=== PATIENT | female | born 1945 | race Caucasian/White ===

== ENCOUNTER → 2018-04-13 | Outpatient (CLI) | payer MEDICARE, MEDICAID ==
[2018-04-13 10:38] LABS: ABSOLUTE BASOPHILS # (AUTO) 0.1 10^3/uL (0.0-0.2); ABSOLUTE EOSINOPHILS # (AUTO) 0.2 10^3/uL (0.0-0.6); ABSOLUTE LYMPHOCYTES (AUTO) 1.9 10^3/uL (0.5-4.7); ABSOLUTE MONOCYTES (AUTO) 0.6 10^3/uL (0.1-1.4); ABSOLUTE NEUT (AUTO) 3.4 10^3/uL (1.7-8.2); BASOPHILS % (AUTO) 1.2 % (0-2); EOSINOPHILS % (AUTO) 3.1 % (0-6); HEMATOCRIT 36.3 % (36.0-47.0); HEMOGLOBIN 12.4 g/dL (12.0-15.5); LYMPHOCYTES % (AUTO) 30.4 % (13-45); MEAN CORPUSCULAR HEMOGLOBIN 29.8 pg (27.0-33.4); MEAN CORPUSCULAR HGB CONC 34.2 g/dL (32.0-36.0); MEAN CORPUSCULAR VOLUME 87 fl (80-97); MONOCYTES % (AUTO) 10.2 % (3-13); PLATELET COUNT 317 10^3/uL (150-450); RED BLOOD COUNT 4.17 10^6/uL (3.72-5.28); RED CELL DISTRIBUTION WIDTH 13.7 % (11.5-14.0); SEGMENTED NEUTROPHILS % (AUTO) 55.1 % (42-78); TOTAL CELLS COUNTED % (AUTO) 100 %; WHITE BLOOD COUNT 6.2 10^3/uL (4.0-10.5)
--- NOTE | 2018-04-13 10:40 | RADIOLOGY REPORT (SQ) ---
EXAM DESCRIPTION: ACUTE ABDOMEN SERIES COMPLETED DATE/TIME: 04/13/2018 9:52 am REASON FOR STUDY: ABD PAIN K21.0 GASTRO-ESOPHAGEAL REFLUX DISEASE WITH ESOPHAGITIS R10.84 GENERALI ZED ABDOMINAL PAIN E78.5 HYPERLIPIDEMIA, UNSPECIFIED COMPARISON: None. NUMBER OF VIEWS: Three views. TECHNIQUE: Frontal chest, supine abdomen and upright/decubitus abdomen radiographic images acquired. LIMITATIONS: None. FINDINGS: CHEST: Lungs clear of infiltrates. Chronic appearing changes are identified. FREE AIR: None. No abnormal gas collections. BOWEL GAS PATTERN: There are some prominent air filled small bowel loops with multiple air-fluid leve ls being identified on the erect film. This presumably is related to an ileus pattern although the p ossibility of a developing obstruction cannot be excluded CALCIFICATIONS: No suspicious calcifications. HARDWARE: Surgical clips are identified in the right upper quadrant SOFT TISSUES: No gross mass or suggestion of organomegaly. BONES: Degenerative changes are identified in the lumbar spine P OTHER: No other significant finding. IMPRESSION: Prominent air filled small bowel loops with multiple air-fluid levels being identified o n the erect film. This presumably is related to an ileus pattern although the possibility of a devel oping obstruction cannot be excluded. Clinical correlation is recommended. Other findings as noted above TECHNICAL DOCUMENTATION: JOB ID: [id number] [employer]- All Rights Reserved Reading location - IP/workstation name: [email or web address]
[2018-04-13 10:54] LABS: ALANINE AMINOTRANSFERASE 24 U/L (9-52); ALBUMIN 3.9 g/dL (3.5-5.0); ALKALINE PHOSPHATASE 81 U/L (38-126); AMYLASE 42 U/L (30-110); ANION GAP 9 (5-19); ASPARTATE AMINO TRANSFERASE 31 U/L (14-36); BILIRUBIN,DIRECT 0.3 mg/dL (0.0-0.4); BILIRUBIN,TOTAL 0.5 mg/dL (0.2-1.3); BLOOD UREA NITROGEN 17 mg/dL (7-20); CALCIUM 9.2 mg/dL (8.4-10.2); CARBON DIOXIDE 28 mmol/L (22-30); CHLORIDE 107 mmol/L (98-107); CHOLESTEROL 143.31 mg/dL (0-200); GLUCOSE 96 mg/dL (75-110); LIPASE 38.8 U/L (23-300); POTASSIUM 4.3 mmol/L (3.6-5.0); SODIUM 144.2 mmol/L (137-145); TOTAL PROTEIN 6.8 g/dL (6.3-8.2); TRIGLYCERIDES 107 mg/dL (<150)
[2018-04-13 11:05] LABS: DIRECT LDL 72 mg/dL (<100)
== END ==
LOC: OD 09:29
PROVIDERS: ATTEND Family Medicine Geriatric Medicine
DX: K21.0 Gastro-esophageal reflux disease with esophagitis (principal); R10.84 Generalized abdominal pain; E78.5 Hyperlipidemia, unspecified; Z79.899 Other long term (current) drug therapy
CPT/HCPCS: 36415; 74022; 80053; 80061; 82150; 83690; 83735; 84443; 85025

== ENCOUNTER 2018-04-14 00:46 | Emergency (ER) | payer MEDICARE, MEDICAID ==
[2018-04-14] MEDS ORDERED: ONDANSETRON HCL INJ/PF 4 MG/2 ML SDV IV ONE (02:34)
[2018-04-14] MEDS ORDERED: DIPHENHYDRAMINE HCL 25 MG CAPSULE PO ONE (02:42)
[2018-04-14] MEDS ORDERED: FAMOTIDINE 20 MG TABLET PO ONE (02:44)
--- NOTE | 2018-04-14 02:46 | ER Document Report ---
ED General - General Chief Complaint: Abdominal Pain Stated Complaint: VOMITING, STOMACH PAIN Time Seen by Provider: 04/14/18 02:09 Mode of Arrival: Ambulatory Information source: Patient, Relative Notes: 72-year-old female with past medical history of C. difficile approximately 5 years ago and chronic pain seen by pain management presents to the emergency department for feeling "sick". She says she became very ill last and she went to see her doctor who said she was "dry". She went and saw her doctor today, labs were drawn, and a KUB was performed which showed multiple air-fluid levels concerning for ileus versus small bowel obstruction. Patient went home today and said she became more ill and came to the emergency department. She endorses chills, headache in the frontal area, diarrhea, vomiting on Tuesday and Tuesday, persistent nausea She denies fevers, dyspnea, chest pain, constipation, bloating. She says she has been on Percocet for years and her baseline is having loose stools. TRAVEL OUTSIDE OF THE [place] IN LAST 30 DAYS: No - HPI Patient complains to provider of: abdominal pain, sick Onset: Last week - Last Severity: Moderate - Related Data Allergies/Adverse Reactions: promethazine HCl [From Phenergan] Allergy (Severe, Verified 11/06/12 12:32) Psychosis nitrofurantoin macrocrystalline [From Macrodantin] Allergy (Mild, Verified 11/06 12:32) Hives Sulfa (Sulfonamide Antibiotics) Allergy (Mild, Verified 11/06/12 12:32) itching ciprofloxacin [From Cipro] Allergy (Unknown, Verified 11/06/12 12:32) ciprofloxacin HCl [From Cipro] Allergy (Unknown, Verified 11/06/12 12:32) hydromorphone HCl [From Dilaudid] Adverse Reaction (Mild, Verified 11/06/12 12: 32) Nausea Past Medical History - General Information source: Patient, Relative - Social History Smoking Status: Former Smoker Family History: Reviewed & Not Pertinent GI Medical History: Reports: Hx Gastroesophageal Reflux Disease Musculoskeletal Medical History: Reports Hx Arthritis Skin Medical History: Denies Hx MRSA Psychiatric Medical History: Reports: Hx Anxiety - severe Past Surgical History: Reports: Hx Cholecystectomy, Hx Hysterectomy, Hx Orthopedic Surgery - old back injury - Immunizations Hx Diphtheria, Pertussis, Tetanus Vaccination: Yes Review of Systems - Review of Systems Constitutional: See HPI EENT: See HPI Cardiovascular: See HPI Respiratory: See HPI Gastrointestinal: See HPI Genitourinary: See HPI Female Genitourinary: No symptoms reported Musculoskeletal: No symptoms reported Skin: No symptoms reported Hematologic/Lymphatic: No symptoms reported Neurological/Psychological: No symptoms reported Physical Exam - Vital signs Vitals: Temp Pulse Resp BP Pulse Ox 97.9 F 66 18 152/66 H 97 04/14/18 00:54 04/14/18 00:54 04/14/18 00:54 04/14/18 00:54 04/14/18 00:54 - Notes Notes: Reviewed vital signs and nursing note as charted by RN. CONSTITUTIONAL: ill-appearing, well-nourished, acting appropriately for age HEAD: Normocephalic, atraumatic, no swelling EYES: PERRL, Conjunctivae clear, no drainage, EOMI, no scleral icterus ENT: External ears without lesions, External auditory canal is patent, no rhinorrhea, Pharynx without erythema or lesions, airway patent, mucous membranes pink and moist NECK: Supple, no cervical lymphadenopathy CARD: Regular rate and rhythm, no murmurs, no rubs, no gallops, capillary refill < 2 seconds, symmetric pulses RESP: The lungs are clear to auscultation bilaterally, no wheezing, no rales, no rhonchi. Respiratory rate and effort are normal, normal chest excursion. No respiratory distress, no retractions, no stridor, no nasal flaring, no accessory muscle use. ABD/GI: Hyperactive bowel sounds, non-distended, soft, non-tender, no rebound, no guarding, no palpable organomegaly EXT: Normal ROM in all joints, non-tender to palpation, no effusions, no edema SKIN: Normal color for age and race, warm, dry, good turgor, no acute lesions noted Course - Re-evaluation Re-evalutation: 04/14/18 02:54 Is a 72-year-old female in mild distress who presents to the emergency department after being seen in primary care office this morning and after getting a KUB which showed concern for an ileus versus SBO. Patient's physical exam is unremarkable. She is afebrile, upper active bowel sounds, abdomen is soft no signs of peritonitis, mild tenderness to palpation right lower quadrant and left lower quadrant. KUB was concerning for air-fluid levels in the small intestine. All lab work was unremarkable, no leukocytosis, no electrolyte derangements. Plan is to get a CT abdomen with IV and oral contrast to rule out an SBO. Patient dates she gets hives when receiving contrast in the past so plan is to give Benadryl 50 mg IV, solumedrol 125 mg IV, and Pepcid 20 mg IV prior to consuming contrast 04/14/18 03:23 04/14/18 06:10 CT abdomen and pelvis negative for small bowel obstruction. No evidence of a surgical pathology patient is safe to discharge home. 04/14/18 06:17 04/14/18 06:17 - Vital Signs Vital signs: Temp Pulse Resp BP Pulse Ox 97.9 F 66 18 152/66 H 97 04/14/18 00:54 04/14/18 00:54 04/14/18 00:54 04/14/18 00:54 04/14/18 00:54 Discharge - Discharge Clinical Impression: Nausea Abdominal pain Qualifiers: Abdominal location: unspecified location Qualified Code(s): R10.9 - Unspecified abdominal pain Condition: Stable Disposition: HOME, SELF-CARE Instructions: Abdominal Pain ([facility]), Antinausea Medication ([facility]) Additional Instructions: You have been seen in the Emergency Department (ED) for abdominal pain. Your evaluation did not identify a clear cause of your symptoms but was generally reassuring. Please follow up with your doctor as soon as possible regarding today's emergent visit and the symptoms that are bothering you. Return to the ED if your abdominal pain worsens or fails to improve, you develop bloody vomiting, bloody diarrhea, you are unable to tolerate fluids due to vomiting, fever greater than 101, or other symptoms that concern you. You have also been seen in the Emergency Department (ED) today for nausea and vomiting. Your work up today has not shown a clear cause for your symptoms. You have been prescribed Zofran; please use as prescribed as needed for your nausea. Follow up with your doctor as soon as possible regarding today's emergent visit and your symptoms of nausea. Return to the Emergency Department (ED) if you develop abdominal pain, bloody vomiting, bloody diarrhea, if you are unable to tolerate fluids due to vomiting , or if you develop other symptoms that concern you. Referrals: FRED MANUEL MD [Primary Care Provider] - Follow up as needed
[2018-04-14] MEDS ORDERED: METHYLPREDNISOLONE INJ 125 MG/2 ML SDV IV ONE (03:03)
[2018-04-14] MEDS ORDERED: DIPHENHYDRAMINE HCL 50 MG/ML VIAL IV ONE (03:03)
[2018-04-14] MEDS ORDERED: FAMOTIDINE INJ/PF 20 MG/2 ML SDV IV ONE (03:03)
[2018-04-14] MEDS ORDERED: NORMAL SALINE 1000 ML 1,000 ML IV ONE (03:04)
[2018-04-14] MEDS ORDERED: FENTANYL CITRATE INJ/PF 100 MCG/2 ML AMPUL IV ONE (04:31)
--- NOTE | 2018-04-14 05:22 | RADIOLOGY REPORT (SQ) ---
CLINICAL HISTORY: concern for SBO, nausea/vomiting/loose stool COMPARISON: None. 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 FINDINGS: Lower lungs are clear. Abdomen: There is a small probable cyst in the anterior liver. There is no biliary dilatation. Gallbladder contains several calcified gallstones. The pancreas and spleen are normal in appearance. There is an indeterminate 1.9 cm lesion within the right kidney anteriorly with a mural calcification. Left kidney is unremarkable. Adrenal glands are normal. Abdominal aorta is normal in course and caliber without aneurysm. There is no free air. There is no retroperitoneal adenopathy. Pelvis: There is moderate to severe distal colonic diverticulosis. Urinary bladder is unremarkable. There is no free fluid. Appendix is not clearly seen. Skeleton: There are no acute osseous findings. No suspicious bony lesions. IMPRESSION: No acute inflammatory process. No definite renal or ureteral calculi. Almost 2 cm indeterminate right renal lesion. Consider contrast study or ultrasound and nonemergent setting.
--- NOTE | 2018-04-14 06:09 | RADIOLOGY REPORT (SQ) ---
CLINICAL HISTORY: SBO? N/V LOOSE STOOL COMPARISON: None. 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 FINDINGS: Lower lungs are clear. Abdomen: There are several tiny cysts in the liver. There is no biliary dilatation. Cholecystectomy was performed. The pancreas and spleen are normal in appearance. The adrenal glands and kidneys are unremarkable. Abdominal aorta is densely calcified without aneurysm. There is no free air. There is no retroperitoneal adenopathy. Pelvis: There is fluid throughout the colon. Urinary bladder is unremarkable. There is trace free pelvic fluid. Appendix is normal. Skeleton: There are no acute osseous findings. No suspicious bony lesions. IMPRESSION: No convincing bowel obstruction. Fluid throughout the colon may be secondary to an underlying diarrheal process.
[2018-04-14] MEDS ORDERED: ONDANSETRON 4 MG TAB.RAPDIS PO ONE (06:12)
[2018-04-14 06:40] VITALS: BP 142/57
== END 2018-04-14 06:40 | disposition home or self-care (01) ==
LOC: ER 00:46
DX: R10.9 Unspecified abdominal pain (principal); R11.0 Nausea; R19.7 Diarrhea, unspecified; Z87.891 Personal history of nicotine dependence
CPT/HCPCS: 99284; 96361; 96374; 96375; 74177; 74160; J1200; J3010; J2930; J2405; J7030; S0028

== ENCOUNTER 2018-05-18 07:14 | Inpatient (IN) | payer MEDICARE, MEDICAID ==
[2018-05-18] MEDS ORDERED: NORMAL SALINE 1000 ML 1,000 ML IV ONE (08:08)
[2018-05-18 08:39] LABS: ABSOLUTE BASOPHILS # (AUTO) 0.1 10^3/uL (0.0-0.2); ABSOLUTE LYMPHOCYTES (AUTO) 0.8 10^3/uL (0.5-4.7); ABSOLUTE MONOCYTES (AUTO) 0.9 10^3/uL (0.1-1.4); ABSOLUTE NEUT (AUTO) 12.7 10^3/uL (1.7-8.2); BASOPHILS % (AUTO) 0.6 % (0-2); HEMATOCRIT 36.7 % (36.0-47.0); HEMOGLOBIN 12.1 g/dL (12.0-15.5); LYMPHOCYTES % (AUTO) 5.4 % (13-45); MEAN CORPUSCULAR HEMOGLOBIN 29.2 pg (27.0-33.4); MEAN CORPUSCULAR HGB CONC 33.1 g/dL (32.0-36.0); MEAN CORPUSCULAR VOLUME 88 fl (80-97); MONOCYTES % (AUTO) 6.4 % (3-13); PLATELET COUNT 295 10^3/uL (150-450); RED BLOOD COUNT 4.16 10^6/uL (3.72-5.28); RED CELL DISTRIBUTION WIDTH 13.6 % (11.5-14.0); SEGMENTED NEUTROPHILS % (AUTO) 87.6 % (42-78); TOTAL CELLS COUNTED % (AUTO) 100 %; WHITE BLOOD COUNT 14.5 10^3/uL (4.0-10.5)
[2018-05-18 08:54] LABS: A TYPE INFLUENZA AG NEGATIVE (NEGATIVE); B INFLUENZA AG NEGATIVE (NEGATIVE)
[2018-05-18 08:56] LABS: ALANINE AMINOTRANSFERASE 15 U/L (9-52); ALBUMIN 4.1 g/dL (3.5-5.0); ALKALINE PHOSPHATASE 72 U/L (38-126); ANION GAP 10 (5-19); ASPARTATE AMINO TRANSFERASE 21 U/L (14-36); BILIRUBIN,DIRECT 0.1 mg/dL (0.0-0.4); BILIRUBIN,TOTAL 0.5 mg/dL (0.2-1.3); BLOOD UREA NITROGEN 17 mg/dL (7-20); CALCIUM 9.3 mg/dL (8.4-10.2); CARBON DIOXIDE 24 mmol/L (22-30); CHLORIDE 105 mmol/L (98-107); GLUCOSE 180 mg/dL (75-110); POTASSIUM 4.3 mmol/L (3.6-5.0); SODIUM 138.7 mmol/L (137-145); TOTAL PROTEIN 6.6 g/dL (6.3-8.2)
--- NOTE | 2018-05-18 09:04 | RADIOLOGY REPORT (SQ) ---
EXAM DESCRIPTION: CHEST 2 VIEWS COMPLETED DATE/TIME: 05/18/2018 8:24 am REASON FOR STUDY: fever, cough COMPARISON: None. EXAM PARAMETERS: NUMBER OF VIEWS: two views TECHNIQUE: Digital Frontal and Lateral radiographic views of the chest acquired. RADIATION DOSE: NA LIMITATIONS: none FINDINGS: LUNGS AND PLEURA: Subsegmental airspace disease in the middle lobe and right lower lobe malcolm perior segment. No effusions. Left lung is clear. MEDIASTINUM AND HILAR STRUCTURES: No masses or contour abnormalities. HEART AND VASCULAR STRUCTURES: Heart normal size. No evidence for failure. BONES: No acute findings. HARDWARE: None in the chest. OTHER: No other significant finding. IMPRESSION: Right middle and lower lobe pneumonia. TECHNICAL DOCUMENTATION: JOB ID: [id number] [employer]- All Rights Reserved Reading location - IP/workstation name: [email or web address]
[2018-05-18 09:12] LABS: APPEARANCE,URINE CLEAR; BILIRUBIN,URINE NEGATIVE (NEGATIVE); COLOR,URINE YELLOW; GLUCOSE, URINE NEGATIVE (NEGATIVE); KETONES,URINE NEGATIVE (NEGATIVE); LEUKOCYTE ESTERASE,URINE NEGATIVE (NEGATIVE); NITRITE,URINE NEGATIVE (NEGATIVE); PROTEIN,URINE NEGATIVE (NEGATIVE); URINE SPECIFIC GRAVITY 1.015; UROBILINOGEN,URINE NEGATIVE mg/dL (<2.0)
--- NOTE | 2018-05-18 09:25 | ER Document Report ---
ED General - General Chief Complaint: Fever Stated Complaint: FEVER Time Seen by Provider: 05/18/18 07:43 Mode of Arrival: Medic Information source: Patient Notes: Patient presents emergency department with complaints of fever body aches and not feeling good. Patient reports she really has not felt good since . She reports last night her body started hurting her granddaughter took her temperature and it was 103. She denies vomiting reports some nausea. She also reports that she has a history of constipation so she took a stool softener and has had diarrhea. She reports positive cough no product and throat hurting. She did receive the flu vaccine. TRAVEL OUTSIDE OF THE [place] IN LAST 30 DAYS: No - HPI Onset: Other - Reports really not feeling good since . Body aches started yesterday Onset/Duration: Persistent Quality of pain: Achy Pain Level: 2 Associated symptoms: Body/muscle aches, Nonproductive cough, Fever, Nausea Exacerbated by: Denies Relieved by: Denies Similar symptoms previously: Yes Recently seen / treated by doctor: No - Related Data Allergies/Adverse Reactions: promethazine HCl [From Phenergan] Allergy (Severe, Verified 11/06/12 12:32) Psychosis nitrofurantoin macrocrystalline [From Macrodantin] Allergy (Mild, Verified 11/06/12 12:32) Hives Sulfa (Sulfonamide Antibiotics) Allergy (Mild, Verified 11/06/12 12:32) itching ciprofloxacin [From Cipro] Allergy (Unknown, Verified 11/06/12 12:32) hydromorphone HCl [From Dilaudid] Adverse Reaction (Mild, Verified 11/06/12 12:32) Nausea Past Medical History - General Information source: Patient - Social History Smoking Status: Former Smoker Chew tobacco use (# tins/day): No Frequency of alcohol use: None Drug Abuse: None Lives with: Alone Family History: Reviewed & Not Pertinent Patient has suicidal ideation: No Patient has homicidal ideation: No Renal/ Medical History: Denies: Hx Peritoneal Dialysis GI Medical History: Reports: Hx Gastroesophageal Reflux Disease Musculoskeletal Medical History: Reports Hx Arthritis Skin Medical History: Denies Hx MRSA Psychiatric Medical History: Reports: Hx Anxiety - severe Past Surgical History: Reports: Hx Cholecystectomy, Hx Hysterectomy, Hx Orthopedic Surgery - old back injury - Immunizations Hx Diphtheria, Pertussis, Tetanus Vaccination: Yes Review of Systems - Review of Systems Notes: Review HPI for review of systems., All other systems negative Physical Exam - Vital signs Vitals: Temp Pulse Resp BP Pulse Ox 100.4 F 82 15 107/55 L 93 05/18/18 07:59 05/18/18 07:59 05/18/18 07:59 05/18/18 07:59 05/18/18 07:59 - Notes Notes: PHYSICAL EXAMINATION: GENERAL: nontoxic looking, no acute distress HEAD: Atraumatic, normocephalic. EYES: Pupils equal round, extraocular movements intact, sclera anicteric, conjunctiva are normal. ENT: nares patent, oropharynx clear without exudates. Moist mucous membranes. NECK: Normal range of motion, supple without lymphadenopathy LUNGS: even unlabored. No wheezes +rhochi. HEART: Regular rate and rhythm ABDOMEN: Soft, no tenderness. No guarding, no rebound EXTREMITIES: Normal range of motion, no pitting edema. No cyanosis. NEUROLOGICAL: Cranial nerves grossly intact. Normal sensory/motor exams. PSYCH: Normal mood, normal affect. SKIN: Warm, Dry, normal turgor, no rashes or lesions noted Course - Re-evaluation Re-evalutation: 05/18/18 09:22 Dictation of this chart was performed using voice recognition software; therefore, there may be some unintended grammatical errors. 05/18/18 10:46 Patient ambulated around the emergency department without oxygen her O2 sats dropped down to the 80s. Return to bed oxygen replaced. Contacted Dr. Townsend because family reported that was her physician. After talking to Dr. Townsend he said she is a patient of Dr. Del Cid who does not admit to the hospital. I contacted and gave report to Dr. Bustamante who accepts the patient. 02sat 93-95% interpreted by me pt with O2 2 L nasal cannula , good waveform - Vital Signs Vital signs: Temp Pulse Resp BP Pulse Ox 98.9 F 57 L 12 100/60 99 05/18/18 14:06 05/18/18 14:06 05/18/18 14:06 05/18/18 14:06 05/18/18 14:06 - Laboratory Result Diagrams: 05/18/18 08:24 05/18/18 08:24 Laboratory results interpreted by me: 05/18/18 05/18/18 08:24 08:24 WBC 14.5 H Seg Neutrophils % 87.6 H Lymphocytes % 5.4 L Absolute Neutrophils 12.7 H Est GFR (Non-Af Amer) 53 L Glucose 180 H - Diagnostic Test Radiology reviewed: Image reviewed, Reports reviewed - EXAM DESCRIPTION: CHEST 2 VIEWS COMPLETED DATE/TIME: 05/18/2018 8:24 am REASON FOR STUDY: fever, cough COMPARISON: None. EXAM PARAMETERS: NUMBER OF VIEWS: two views TECHNIQUE: Di gital Frontal and Lateral radiographic views of the chest acquired. RADIATION DOSE: NA LIMITATIONS: none FINDINGS: LUNGS AND PLEURA: Subsegmental airspace disease in the middle lobe and right lower lobe superior segment. No effusions. Left lung is clear. MEDIASTINUM AND HILAR STRUCTURES: No masses or contour abnormalities. HEART AND VASCULAR STRUCTURES: Heart normal size. No evidence for failure. BONES: No acute findings. HARDWARE: None in the chest. OTHER: No other significant finding. IMPRESSION: Right middle and lower lobe pneumonia. - EKG Interpretation by Or EKG shows normal: Sinus rhythm Rate: Normal Rhythm: NSR - Consults vesna Time consulted: 10:48 Consulted provider: will see as inpatient Discharge - Discharge Clinical Impression: Fever Pneumonia Qualifiers: Pneumonia type: due to unspecified organism Laterality: right Lung location: lower lobe of lung Qualified Code(s): J18.1 - Lobar pneumonia, unspecified organism Condition: Stable Disposition: ADMITTED INPATIENT Admitting Provider: Narcisa bustamante Unit Admitted: Medical Floor
[2018-05-18] MEDS ORDERED: CEFTRIAXONE 1 GM/D5W RTU 1 GM/50 ML RTUPB IV ONE (10:34)
[2018-05-18] MEDS ORDERED: NORMAL SALINE 1000 ML 1,000 ML IV PRN (11:54)
[2018-05-18] MEDS ORDERED: ALBUTEROL SULFATE 0.083% NEB 2.5 MG/3 ML AMPUL NEB PRN (11:54)
[2018-05-18] MEDS ORDERED: GUAIFENESIN/D-METHORPHAN (200-20 MG) SYRUP 10 ML PO PRN (12:04)
--- NOTE | 2018-05-18 12:20 | PDOC H&P ---
History of Present Illness Admission Date/PCP: 05/18/18 11:25 FRED MANUEL MD Patient complains of: Fever, chills and shortness of breath History of Present Illness: JOSEPH KIDD is a 72 year old female who was feeling reasonably well at her baseline until yesterday. Last evening she began to get a sense of being cold with shaking. She had not been coughing but did feel short of breath. Her daughter reports that she believes that her mother was slowly getting more short of breath over the last week or so. At one point they helped mom go to the bathroom because she was so weak. Temperature at home was 103 degrees and a pulse oximetry on room air was 89 degrees. The family was quite concerned and brought the patient to the emergency department. After evaluation the patient was found to have a right lower and middle lobe pneumonia. There was no history of recurrent emesis although the patient did say she was nauseated and had emesis but this was a week or 2 ago. There was a small elevation in white blood cell count at 14,000. Oxygen was required for hypoxemia. The patient is not on oxygen at home. The patient will be admitted by the hospitalist for treatment of her right-sided pneumonia. Past Medical History Cardiac Medical History: Denies: Atrial Fibrillation, Congestive Heart Failure, Myocardial Infarction Pulmonary Medical History: Denies: Asthma, Respiratory Failure, Sleep Apnea EENT Medical History: Reports: None Neurological Medical History: Denies: Hemorrhagic CVA, Ischemic CVA, Migraine, Multiple Sclerosis Endocrine Medical History: Denies: Diabetes Mellitus Type 1, Diabetes Mellitus Type 2 Renal/ Medical History: Reports: Other - Mild chronic kidney disease suspected by primary care physician. Workup in Malignancy Medical History: Reports: None GI Medical History: Reports: Gastroesophageal Reflux Disease Musculoskeltal Medical History: Reports: Arthritis Psychiatric Medical History: Denies: Alcohol Dependency, Bipolar Disorder, Dementia, Depression Traumatic Medical History: Reports: None Hematology: Denies: Anemia, Hemophilia, Bleeding Tendencies Infectious Medical History: Reports: Clostridium Difficile Past Surgical History Past Surgical History: Reports: Cholecystectomy, Hysterectomy, Orthopedic Surger y - old back injury Social History Information Source: Patient, Relative, [facility] Records Lives with: Alone Smoking Status: Former Smoker Frequency of Alcohol Use: None Hx Recreational Drug Use: No Drugs: None Hx Prescription Drug Abuse: No - Patient on chronic opiate therapy for back pain treated at pain management - Advance Directive Resuscitation Status: Full Code Surrogate healthcare decision maker:: Unknown at this time Family History Family History: Arthritis, COPD, Malignancy - Lung cancer Parental Family History Reviewed: Yes Children Family History Reviewed: Yes Sibling(s) Family History Reviewed.: Yes Medication/Allergy Home Medications: Dicyclomine HCl [Bentyl 10 mg Capsule] 10 mg PO QID 05/18/18 Fluticasone Propionate [Flonase Nasal Egnar 50 Mcg/Egnar 16 gm] 1 spray NASL DAILY 05/18/18 Gabapentin [Neurontin] 600 mg PO Q8 05/18/18 Hydroxyzine HCl [Atarax 25 mg Tablet] 25 mg PO Q12 05/18/18 Omeprazole 20 mg PO BID 05/18/18 Oxycodone HCl 15 mg PO Q6HP PRN 05/18/18 Allergies/Adverse Reactions: promethazine HCl [From Phenergan] Allergy (Severe, Verified 11/06/12 12:32) Psychosis nitrofurantoin macrocrystalline [From Macrodantin] Allergy (Mild, Verified 11/06/12 12:32) Hives Sulfa (Sulfonamide Antibiotics) Allergy (Mild, Verified 11/06/12 12:32) itching ciprofloxacin [From Cipro] Allergy (Unknown, Verified 11/06/12 12:32) ciprofloxacin HCl [From Cipro] Allergy (Unknown, Verified 11/06/12 12:32) hydromorphone HCl [From Dilaudid] Adverse Reaction (Mild, Verified 11/06/12 12:32) Nausea Review of Systems Constitutional: PRESENT: as per HPI, chills, fatigue Eyes: PRESENT: other - She does wear glasses. ABSENT: visual disturbances Ears: ABSENT: hearing changes Nose, Mouth, and Throat: PRESENT: other - Chronic dry mouth Cardiovascular: ABSENT: chest pain, edema, palpitations Respiratory: PRESENT: cough, dyspnea. ABSENT: hemoptysis, sputum Gastrointestinal: PRESENT: constipation - Occasional from pain medication, heart burn. ABSENT: abdominal pain, diarrhea Genitourinary: ABSENT: dysuria, hematuria Musculoskeletal: PRESENT: back pain Integumentary: ABSENT: lesions, rash Neurological: ABSENT: abnormal speech, convulsions, dizziness, syncope, tremor(s) Psychiatric: ABSENT: anxiety, depression Endocrine: ABSENT: cold intolerance, heat intolerance, polydipsia, polyuria Hematologic/Lymphatic: ABSENT: easy bleeding, easy bruising Allergic/Immunologic: ABSENT: seasonal rhinorrhea Physical Exam Vital Signs: Temp Pulse Resp BP Pulse Ox 100.4 F 82 15 107/55 L 95 05/18/18 07:59 05/18/18 07:59 05/18/18 07:59 05/18/18 07:59 05/18/18 08:26 Intake & Output 05/17/18 05/18/18 05/19/18 06:59 06:59 06:59 Weight 79.4 kg General appearance: PRESENT: cooperative, mild distress Head exam: PRESENT: normocephalic Eye exam: PRESENT: conjunctiva pale, EOMI, nystagmus. ABSENT: scleral icterus Ear exam: PRESENT: normal external ear exam Mouth exam: PRESENT: dry mucosa, tongue midline Neck exam: ABSENT: lymphadenopathy Respiratory exam: PRESENT: rhonchi - On the right, symmetrical. ABSENT: accessory muscle use, stridor, tachypnea, wheezes Cardiovascular exam: PRESENT: RRR, +S1, +S2 Vascular exam: PRESENT: pallor GI/Abdominal exam: PRESENT: normal bowel sounds, soft. ABSENT: distended, tenderness Rectal exam: PRESENT: deferred Neurological exam: PRESENT: awake - But somnolent., oriented to person, oriented to place, oriented to situation Psychiatric exam: PRESENT: flat affect. ABSENT: agitated, anxious Focused psych exam: ABSENT: restlessness Results Laboratory Results: 05/18/18 08:24 05/18/18 08:24 05/18/18 05/18/18 05/18/18 08:00 08:24 08:24 WBC 14.5 H RBC 4.16 Hgb 12.1 Hct 36.7 MCV 88 MCH 29.2 MCHC 33.1 RDW 13.6 Plt Count 295 Seg Neutrophils % 87.6 H Lymphocytes % 5.4 L Monocytes % 6.4 Eosinophils % 0.0 Basophils % 0.6 Absolute Neutrophils 12.7 H Absolute Lymphocytes 0.8 Absolute Monocytes 0.9 Absolute Eosinophils 0.0 Absolute Basophils 0.1 Sodium 138.7 Potassium 4.3 Chloride 105 Carbon Dioxide 24 Anion Gap 10 BUN 17 Creatinine 1.03 Est GFR ( Amer) > 60 Est GFR (Non-Af Amer) 53 L Glucose 180 H Calcium 9.3 Total Bilirubin 0.5 AST 21 ALT 15 Alkaline Phosphatase 72 Total Protein 6.6 Albumin 4.1 Urine Color YELLOW Urine Appearance CLEAR Urine pH 5.0 Ur Specific [place] 1.015 Urine Protein NEGATIVE Urine Glucose (UA) NEGATIVE Urine Ketones NEGATIVE Urine Blood NEGATIVE Urine Nitrite NEGATIVE Ur Leukocyte Esterase NEGATIVE Urine WBC (Auto) 1 Urine RBC (Auto) 2 Impressions: Chest X-Ray 05/18/18 07:53 IMPRESSION: Right middle and lower lobe pneumonia. Assessment & Plan - Diagnosis (1) Pneumonia Qualifiers: Pneumonia type: due to unspecified organism Laterality: right Lung location: lower lobe of lung Qualified Code(s): J18.1 - Lobar pneumonia, unspecified organism Is this a current diagnosis for this admission?: Yes Plan: The patient presents with a fairly acute onset right lower and middle lobe pneumonia. There is no obvious recent emesis to suggest aspiration but this still is a consideration. With her multiple allergies she will be placed on ceftriaxone and azithromycin for the time being. Have ordered a sputum culture. Hopefully with guaifenesin she may be able to cough up a specimen sent to the lab. Scheduled DuoNeb and as needed nebulizer treatments available. Oxygen supplementation to keep her saturation 90% or better. Mucolytic's ordered as well as cough suppressant. (2) Back pain Qualifiers: Back pain location: low back pain Chronicity: chronic Back pain laterality: midline Sciatica presence: unspecified whether sciatica present Qualified Code(s): M54.5 - Low back pain; G89.29 - Other chronic pain Is this a current diagnosis for this admission?: Yes Plan: The patient is registered at the chronic pain management clinic. I will defer any changes in her pain management to the clinic. She will be on stool softeners to prevent constipation. (3) Gastroesophageal reflux Qualifiers: Esophagitis presence: esophagitis presence not specified Qualified Code(s): K21.9 - Gastro-esophageal reflux disease without esophagitis Is this a current diagnosis for this admission?: Yes Plan: The patient will continue on proton pump inhibition. If reflux is bad enough a chemical pneumonitis can be considered. Continue treatment plan as outlined above. - Time Time Spent: 50 to 70 Minutes Medications reviewed and adjusted accordingly: Yes Anticipated discharge: Home - Inpatient Certification Based on my medical assessment, after consideration of the patient's comorbidities, presenting symptoms, or acuity I expect that the services needed warrant INPATIENT care.: Yes I certify that my determination is in accordance with my understanding of Medicare's requirements for reasonable and necessary INPATIENT services [42 CFR 412.3e].: Yes Medical Necessity: Need For IV Fluids, Need for Nebulizer Therapy and Monitoring of Response, Need for Pain Control, Need for IV Antibiotics
--- NOTE | 2018-05-18 12:48 | EKG REPORT ---
SEVERITY:- BORDERLINE ECG - SINUS RHYTHM NONSPECIFIC ST-T CHANGES- INFERIOR LEADS : Confirmed by: Rolf Russell MD 18-May-2018 12:47:07
[2018-05-18] MEDS ORDERED: DICYCLOMINE HCL 10 MG CAPSULE PO SCH (14:00)
[2018-05-18] MEDS: GABAPENTIN 300 MG CAPSULE PO SCH ×2 (15:05→21:58)
[2018-05-18] MEDS: IPRATROPIUM/ALBUTEROL 0.5-2.5 MG/3 ML AMPUL NEB SCH (16:30)
[2018-05-18] MEDS: DICYCLOMINE HCL 10 MG CAPSULE PO SCH ×2 (18:15→21:58)
[2018-05-18] MEDS: LACTOBACILLUS ACIDOPHILUS 250 MG TAB PO SCH (18:15)
[2018-05-18] MEDS: DOCUSATE SODIUM 100 MG CAPSULE PO SCH (18:15)
[2018-05-18] MEDS: LANSOPRAZOLE 15 MG TAB.RAP.DR PO SCH (18:15)
[2018-05-18] MEDS: OXYCODONE HCL IR 5 MG TABLET PO PRN (18:25)
[2018-05-18] MEDS: GUAIFENESIN 600 MG TABLET.SA PO SCH (21:58)
[2018-05-18] MEDS: HYDROXYZINE PAMOATE 25 MG CAPSULE PO SCH (21:58)
[2018-05-18] MEDS: AZITHROMYCIN 500 MG in DEXTROSE 5%-WATER 250 ML IV SCH (21:59)
[2018-05-18] MEDS ORDERED: (PENDING PHARMACY ID) (Hydroxyzine Hcl [Atarax 25 Mg Tablet] 25 MG) PO SCH (22:00)
[2018-05-19] MEDS: IPRATROPIUM/ALBUTEROL 0.5-2.5 MG/3 ML AMPUL NEB SCH ×3 (00:19→16:49)
[2018-05-19] MEDS: OXYCODONE HCL IR 5 MG TABLET PO PRN ×3 (03:49→23:45)
[2018-05-19] MEDS: LANSOPRAZOLE 15 MG TAB.RAP.DR PO SCH ×2 (05:22→16:42)
[2018-05-19] MEDS: GABAPENTIN 300 MG CAPSULE PO SCH ×3 (05:22→22:41)
[2018-05-19] MEDS: DICYCLOMINE HCL 10 MG CAPSULE PO SCH ×3 (07:47→15:15)
[2018-05-19] MEDS: GUAIFENESIN 600 MG TABLET.SA PO SCH ×2 (09:44→22:41)
[2018-05-19] MEDS: ENOXAPARIN SODIUM INJ 40 MG/0.4 ML DISP.SYRIN SUBCUT SCH (09:45)
[2018-05-19] MEDS: DOCUSATE SODIUM 100 MG CAPSULE PO SCH ×2 (09:45→17:22)
[2018-05-19] MEDS: LACTOBACILLUS ACIDOPHILUS 250 MG TAB PO SCH ×2 (09:45→17:22)
[2018-05-19] MEDS: HYDROXYZINE PAMOATE 25 MG CAPSULE PO SCH ×2 (09:45→22:59)
[2018-05-19] MEDS: CEFTRIAXONE 1 GM/D5W RTU 1 GM/50 ML RTUPB IV SCH (09:46)
[2018-05-19] MEDS: FLUTICASONE NASAL SPRAY 50 MCG/SPRY 120 SPRAY/16 GM NASL SCH (09:48)
[2018-05-19] MEDS ORDERED: NORMAL SALINE 1000 ML 1,000 ML IV ONE (11:30)
[2018-05-19 14:14] LABS: HEMATOCRIT 32.5 % (36.0-47.0); MEAN CORPUSCULAR HEMOGLOBIN 29.7 pg (27.0-33.4); MEAN CORPUSCULAR HGB CONC 33.9 g/dL (32.0-36.0); MEAN CORPUSCULAR VOLUME 88 fl (80-97); PLATELET COUNT 266 10^3/uL (150-450); RED CELL DISTRIBUTION WIDTH 13.6 % (11.5-14.0); WHITE BLOOD COUNT 10.9 10^3/uL (4.0-10.5)
[2018-05-19] MEDS: ACETAMINOPHEN 325 MG TABLET PO PRN (14:50)
--- NOTE | 2018-05-19 22:05 | PDOC PROGRESS REPORT ---
Subjective Progress Note for:: 05/19/18 Subjective:: The patient appears significantly improved today. She is not tachypneic. She does not appear to be in any distress. Reason For Visit: PNEUMONIA Physical Exam Vital Signs: Temp Pulse Resp BP Pulse Ox 100.9 F H 68 16 105/42 L 96 05/19/18 14:47 05/19/18 16:49 05/19/18 16:49 05/19/18 14:47 05/19/18 16:49 Intake & Output 05/18/18 05/19/18 05/20/18 06:59 06:59 06:59 Intake Total 2065 1997 Balance 2065 1997 Weight 78.74 kg 78.74 kg General appearance: PRESENT: no acute distress, cooperative, well-developed Head exam: PRESENT: normocephalic Mouth exam: PRESENT: moist, tongue midline Respiratory exam: PRESENT: rhonchi, symmetrical, unlabored. ABSENT: rales, stridor, wheezes Cardiovascular exam: PRESENT: RRR, +S1, +S2 GI/Abdominal exam: PRESENT: normal bowel sounds, soft. ABSENT: distended, tenderness Extremities exam: ABSENT: pedal edema Neurological exam: PRESENT: alert, awake, oriented to person, oriented to place, oriented to time, oriented to situation Psychiatric exam: PRESENT: appropriate affect, normal mood. ABSENT: agitated, anxious Focused psych exam: ABSENT: restlessness Results Laboratory Results: 05/19/18 14:00 05/18/18 08:24 05/19/18 14:00 WBC 10.9 H RBC 3.70 L Hgb 11.0 L Hct 32.5 L MCV 88 MCH 29.7 MCHC 33.9 RDW 13.6 Plt Count 266 Impressions: Chest X-Ray 05/18/18 07:53 IMPRESSION: Right middle and lower lobe pneumonia. Assessment & Plan - Diagnosis (1) Pneumonia Qualifiers: Pneumonia type: due to unspecified organism Laterality: right Lung location: lower lobe of lung Qualified Code(s): J18.1 - Lobar pneumonia, unspecified organism Is this a current diagnosis for this admission?: Yes Plan: Continue current antibiotic therapy. Final results of sputum culture pending. (2) Back pain Qualifiers: Back pain location: low back pain Chronicity: chronic Back pain laterality: midline Sciatica presence: unspecified whether sciatica present Qualified Code(s): M54.5 - Low back pain; G89.29 - Other chronic pain Is this a current diagnosis for this admission?: Yes Plan: Continue current regimen (3) Gastroesophageal reflux Qualifiers: Esophagitis presence: esophagitis presence not specified Qualified Code(s): K21.9 - Gastro-esophageal reflux disease without esophagitis Is this a current diagnosis for this admission?: Yes Plan: Continue acid suppression - Time Time Spent with patient: Less than 15 minutes Medications reviewed and adjusted accordingly: Yes Anticipated discharge: Home
[2018-05-19] MEDS: AZITHROMYCIN 500 MG in DEXTROSE 5%-WATER 250 ML IV SCH (22:40)
[2018-05-19] MEDS ORDERED: DICYCLOMINE HCL 10 MG CAPSULE ONE (23:25)
[2018-05-20] MEDS: DICYCLOMINE HCL 10 MG CAPSULE PO SCH ×5 (00:29→21:33)
[2018-05-20] MEDS: IPRATROPIUM/ALBUTEROL 0.5-2.5 MG/3 ML AMPUL NEB SCH ×3 (00:34→15:58)
[2018-05-20 05:20] LABS: ABSOLUTE BASOPHILS # (AUTO) 0.1 10^3/uL (0.0-0.2); ABSOLUTE EOSINOPHILS # (AUTO) 0.1 10^3/uL (0.0-0.6); ABSOLUTE LYMPHOCYTES (AUTO) 2.1 10^3/uL (0.5-4.7); ABSOLUTE MONOCYTES (AUTO) 0.9 10^3/uL (0.1-1.4); ABSOLUTE NEUT (AUTO) 6.8 10^3/uL (1.7-8.2); BASOPHILS % (AUTO) 0.6 % (0-2); EOSINOPHILS % (AUTO) 1.4 % (0-6); HEMATOCRIT 31.3 % (36.0-47.0); HEMOGLOBIN 10.3 g/dL (12.0-15.5); LYMPHOCYTES % (AUTO) 21.4 % (13-45); MEAN CORPUSCULAR HEMOGLOBIN 29.5 pg (27.0-33.4); MEAN CORPUSCULAR VOLUME 89 fl (80-97); MONOCYTES % (AUTO) 9.3 % (3-13); PLATELET COUNT 277 10^3/uL (150-450); RED BLOOD COUNT 3.51 10^6/uL (3.72-5.28); RED CELL DISTRIBUTION WIDTH 13.4 % (11.5-14.0); SEGMENTED NEUTROPHILS % (AUTO) 67.3 % (42-78); TOTAL CELLS COUNTED % (AUTO) 100 %
[2018-05-20] MEDS: GABAPENTIN 300 MG CAPSULE PO SCH ×3 (05:28→21:33)
[2018-05-20] MEDS: LANSOPRAZOLE 15 MG TAB.RAP.DR PO SCH ×2 (05:28→17:08)
[2018-05-20 05:44] LABS: ANION GAP 6 (5-19); BLOOD UREA NITROGEN 12 mg/dL (7-20); CALCIUM 8.6 mg/dL (8.4-10.2); CARBON DIOXIDE 25 mmol/L (22-30); CHLORIDE 110 mmol/L (98-107); GLUCOSE 110 mg/dL (75-110); POTASSIUM 4.3 mmol/L (3.6-5.0); SODIUM 140.9 mmol/L (137-145)
[2018-05-20] MEDS: CEFTRIAXONE 1 GM/D5W RTU 1 GM/50 ML RTUPB IV SCH (10:35)
[2018-05-20] MEDS: LACTOBACILLUS ACIDOPHILUS 250 MG TAB PO SCH ×2 (10:38→17:08)
[2018-05-20] MEDS: FLUTICASONE NASAL SPRAY 50 MCG/SPRY 120 SPRAY/16 GM NASL SCH (10:38)
[2018-05-20] MEDS: HYDROXYZINE PAMOATE 25 MG CAPSULE PO SCH ×2 (10:38→21:33)
[2018-05-20] MEDS: DOCUSATE SODIUM 100 MG CAPSULE PO SCH ×2 (10:39→17:08)
[2018-05-20] MEDS: ENOXAPARIN SODIUM INJ 40 MG/0.4 ML DISP.SYRIN SUBCUT SCH (10:39)
[2018-05-20] MEDS: GUAIFENESIN 600 MG TABLET.SA PO SCH ×2 (10:40→21:33)
[2018-05-20] MEDS: OXYCODONE HCL IR 5 MG TABLET PO PRN ×2 (11:21→22:53)
--- NOTE | 2018-05-20 12:36 | PDOC PROGRESS REPORT ---
Subjective Progress Note for:: 05/20/18 Subjective:: The patient continues to feel slightly better each day. She reports that her vision has been slightly blurry since the infection but seems to be getting better each day. Reason For Visit: PNEUMONIA Physical Exam Vital Signs: Temp Pulse Resp BP Pulse Ox 98.9 F 80 19 123/56 L 91 L 05/19/18 23:07 05/20/18 08:29 05/20/18 08:29 05/19/18 23:07 05/20/18 08:29 Intake & Output 05/19/18 05/20/18 05/21/18 06:59 06:59 06:59 Intake Total 2065 2597 Balance 2065 2597 Weight 78.74 kg 80.7 kg General appearance: PRESENT: no acute distress, cooperative, well-developed Head exam: PRESENT: normocephalic Ear exam: PRESENT: normal external ear exam Respiratory exam: PRESENT: rhonchi - Right base, symmetrical, unlabored. ABSENT: prolonged expiratory phas, rales, wheezes Cardiovascular exam: PRESENT: RRR, +S1, +S2, systolic murmur - 2/6 GI/Abdominal exam: PRESENT: normal bowel sounds, soft. ABSENT: distended, tenderness Extremities exam: ABSENT: pedal edema Neurological exam: PRESENT: alert, awake, oriented to person, oriented to place, oriented to situation Psychiatric exam: PRESENT: normal mood. ABSENT: agitated, anxious Results Laboratory Results: 05/20/18 04:54 05/20/18 04:54 05/19/18 05/20/18 05/20/18 14:00 04:54 04:54 WBC 10.9 H 10.0 RBC 3.70 L 3.51 L Hgb 11.0 L 10.3 L Hct 32.5 L 31.3 L MCV 88 89 MCH 29.7 29.5 MCHC 33.9 33.0 RDW 13.6 13.4 Plt Count 266 277 Seg Neutrophils % 67.3 Lymphocytes % 21.4 Monocytes % 9.3 Eosinophils % 1.4 Basophils % 0.6 Absolute Neutrophils 6.8 Absolute Lymphocytes 2.1 Absolute Monocytes 0.9 Absolute Eosinophils 0.1 Absolute Basophils 0.1 Sodium 140.9 Potassium 4.3 Chloride 110 H Carbon Dioxide 25 Anion Gap 6 BUN 12 Creatinine 0.83 Est GFR ( Amer) > 60 Est GFR (Non-Af Amer) > 60 Glucose 110 Calcium 8.6 05/19/18 07:36 Sputum Gram Stain - Final Impressions: Chest X-Ray 05/18/18 07:53 IMPRESSION: Right middle and lower lobe pneumonia. Assessment & Plan - Diagnosis (1) Pneumonia Qualifiers: Pneumonia type: due to unspecified organism Laterality: right Lung location: lower lobe of lung Qualified Code(s): J18.1 - Lobar pneumonia, unspecified organism Is this a current diagnosis for this admission?: Yes Plan: Gram-negative bacillus identified in sputum. Continue Rocephin and azithromycin until final identification and sensitivities are available. Her white blood cell count is now down to normal so the antibiotics are clearly effective. She is still on oxygen supplementation. We will try and establish room air saturations at rest and with ambulation. (2) Back pain Qualifiers: Back pain location: low back pain Chronicity: chronic Back pain laterality: midline Sciatica presence: unspecified whether sciatica present Qualified Code(s): M54.5 - Low back pain; G89.29 - Other chronic pain Is this a current diagnosis for this admission?: Yes Plan: Chronic and stable (3) Gastroesophageal reflux Qualifiers: Esophagitis presence: esophagitis presence not specified Qualified Code(s): K21.9 - Gastro-esophageal reflux disease without esophagitis Is this a current diagnosis for this admission?: Yes Plan: Chronic and stable. Continue current regimen. - Time Time Spent with patient: Less than 15 minutes Medications reviewed and adjusted accordingly: Yes Anticipated discharge: Home
[2018-05-20] MEDS: ACETAMINOPHEN 325 MG TABLET PO PRN ×2 (13:59→21:37)
[2018-05-20] MEDS: AZITHROMYCIN 500 MG in DEXTROSE 5%-WATER 250 ML IV SCH (21:33)
[2018-05-21] MEDS: IPRATROPIUM/ALBUTEROL 0.5-2.5 MG/3 ML AMPUL NEB SCH ×3 (00:20→15:58)
[2018-05-21] MEDS: LANSOPRAZOLE 15 MG TAB.RAP.DR PO SCH ×2 (05:10→17:05)
[2018-05-21] MEDS: GABAPENTIN 300 MG CAPSULE PO SCH ×3 (05:10→21:14)
[2018-05-21] MEDS: OXYCODONE HCL IR 5 MG TABLET PO PRN ×3 (06:41→23:52)
[2018-05-21] MEDS: DICYCLOMINE HCL 10 MG CAPSULE PO SCH ×4 (07:38→21:14)
[2018-05-21] MEDS: HYDROXYZINE PAMOATE 25 MG CAPSULE PO SCH ×2 (09:39→21:14)
[2018-05-21] MEDS: DOCUSATE SODIUM 100 MG CAPSULE PO SCH ×2 (09:39→17:05)
[2018-05-21] MEDS: LACTOBACILLUS ACIDOPHILUS 250 MG TAB PO SCH ×2 (09:39→17:05)
[2018-05-21] MEDS: ENOXAPARIN SODIUM INJ 40 MG/0.4 ML DISP.SYRIN SUBCUT SCH (09:39)
[2018-05-21] MEDS: GUAIFENESIN 600 MG TABLET.SA PO SCH ×2 (09:39→21:14)
[2018-05-21] MEDS: CEFTRIAXONE 1 GM/D5W RTU 1 GM/50 ML RTUPB IV SCH (09:39)
[2018-05-21] MEDS: FLUTICASONE NASAL SPRAY 50 MCG/SPRY 120 SPRAY/16 GM NASL SCH (09:40)
--- NOTE | 2018-05-21 14:25 | PDOC PROGRESS REPORT ---
Subjective Progress Note for:: 05/21/18 Subjective:: Napping in bed. Awakens easily. Still desaturates when on room air with ambulation. Reason For Visit: PNEUMONIA Physical Exam Vital Signs: Temp Pulse Resp BP Pulse Ox 99.4 F 81 18 119/48 L 99 05/21/18 11:50 05/21/18 11:50 05/21/18 11:50 05/21/18 11:50 05/21/18 11:50 Intake & Output 05/20/18 05/21/18 05/22/18 06:59 06:59 06:59 Intake Total 2598 1105 50 Output Total 2 Balance 2598 1103 50 Weight 80.7 kg 81.2 kg General appearance: PRESENT: no acute distress, well-developed Head exam: PRESENT: normocephalic Ear exam: PRESENT: normal external ear exam Respiratory exam: PRESENT: crackles - Faint, symmetrical, unlabored. ABSENT: prolonged expiratory phas, rales, rhonchi, wheezes Cardiovascular exam: PRESENT: RRR, +S1, +S2 Neurological exam: PRESENT: alert, awake, oriented to person, oriented to place, oriented to situation Psychiatric exam: PRESENT: flat affect. ABSENT: agitated, anxious Results Laboratory Results: 05/20/18 04:54 05/20/18 04:54 05/19/18 07:36 Sputum Gram Stain - Final 05/19/18 07:36 Sputum Sputum Culture - Final Escherichia Coli Normal Aneta Absent Impressions: Chest X-Ray 05/18/18 07:53 IMPRESSION: Right middle and lower lobe pneumonia. Assessment & Plan - Diagnosis (1) Pneumonia Qualifiers: Pneumonia type: due to unspecified organism Laterality: right Lung location: lower lobe of lung Qualified Code(s): J18.1 - Lobar pneumonia, unspecified organism Is this a current diagnosis for this admission?: Yes Plan: Continues to improve. Continue Rocephin and azithromycin. Repeat chest x-ray in the morning. I would expect the patient to be weaned off of oxygen by tomorrow. (2) Back pain Qualifiers: Back pain location: low back pain Chronicity: chronic Back pain laterality: midline Sciatica presence: unspecified whether sciatica present Qualified Code(s): M54.5 - Low back pain; G89.29 - Other chronic pain Is this a current diagnosis for this admission?: Yes Plan: Chronic. Continue same regimen. (3) Gastroesophageal reflux Qualifiers: Esophagitis presence: esophagitis presence not specified Qualified Code(s): K21.9 - Gastro-esophageal reflux disease without esophagitis Is this a current diagnosis for this admission?: Yes Plan: Well controlled. Continue same regimen. - Time Time Spent with patient: Less than 15 minutes Medications reviewed and adjusted accordingly: Yes Anticipated discharge: Home Within: within 48 hours
[2018-05-21] MEDS: NYSTATIN/DEXAMETH/DIPHEN SUSP 120 ML PO SCH ×2 (17:05→21:15)
[2018-05-21] MEDS: POLYETHYLENE GLYCOL 3350 POWDER 17 GM/1 PACKET PO PRN (17:10)
[2018-05-21] MEDS: AZITHROMYCIN 500 MG in DEXTROSE 5%-WATER 250 ML IV SCH (21:14)
[2018-05-22] MEDS: IPRATROPIUM/ALBUTEROL 0.5-2.5 MG/3 ML AMPUL NEB SCH ×3 (00:09→16:26)
[2018-05-22 04:49] LABS: ABSOLUTE BASOPHILS # (AUTO) 0.1 10^3/uL (0.0-0.2); ABSOLUTE EOSINOPHILS # (AUTO) 0.2 10^3/uL (0.0-0.6); ABSOLUTE LYMPHOCYTES (AUTO) 2.1 10^3/uL (0.5-4.7); ABSOLUTE MONOCYTES (AUTO) 0.8 10^3/uL (0.1-1.4); BASOPHILS % (AUTO) 1.3 % (0-2); EOSINOPHILS % (AUTO) 2.1 % (0-6); HEMATOCRIT 31.3 % (36.0-47.0); HEMOGLOBIN 10.5 g/dL (12.0-15.5); LYMPHOCYTES % (AUTO) 25.7 % (13-45); MEAN CORPUSCULAR HEMOGLOBIN 29.2 pg (27.0-33.4); MEAN CORPUSCULAR HGB CONC 33.6 g/dL (32.0-36.0); MEAN CORPUSCULAR VOLUME 87 fl (80-97); MONOCYTES % (AUTO) 10.3 % (3-13); PLATELET COUNT 313 10^3/uL (150-450); RED BLOOD COUNT 3.61 10^6/uL (3.72-5.28); RED CELL DISTRIBUTION WIDTH 13.3 % (11.5-14.0); SEGMENTED NEUTROPHILS % (AUTO) 60.6 % (42-78); TOTAL CELLS COUNTED % (AUTO) 100 %; WHITE BLOOD COUNT 8.2 10^3/uL (4.0-10.5)
[2018-05-22 05:30] LABS: ANION GAP 9 (5-19); BLOOD UREA NITROGEN 11 mg/dL (7-20); CALCIUM 9.1 mg/dL (8.4-10.2); CARBON DIOXIDE 27 mmol/L (22-30); CHLORIDE 104 mmol/L (98-107); GLUCOSE 115 mg/dL (75-110); POTASSIUM 4.6 mmol/L (3.6-5.0); SODIUM 140.2 mmol/L (137-145)
[2018-05-22] MEDS: OXYCODONE HCL IR 5 MG TABLET PO PRN ×3 (05:44→18:11)
[2018-05-22] MEDS: GABAPENTIN 300 MG CAPSULE PO SCH ×3 (05:44→21:45)
[2018-05-22] MEDS: LANSOPRAZOLE 15 MG TAB.RAP.DR PO SCH ×2 (05:44→17:11)
[2018-05-22] MEDS: DICYCLOMINE HCL 10 MG CAPSULE PO SCH ×4 (08:47→21:44)
--- NOTE | 2018-05-22 09:30 | RADIOLOGY REPORT (SQ) ---
EXAM DESCRIPTION: CHEST 2 VIEWS COMPLETED DATE/TIME: 05/22/2018 8:30 am REASON FOR STUDY: pneumonia COMPARISON: Chest films 05/18/2018 Three-way abdomen series 04/13/2018 EXAM PARAMETERS: NUMBER OF VIEWS: two views TECHNIQUE: Digital Frontal and Lateral radiographic views of the chest acquired. RADIATION DOSE: NA LIMITATIONS: none FINDINGS: LUNGS AND PLEURA: Asymmetric right-sided airspace disease persists, unchanged from 05/18/19 19 worrisome for pneumonia. No left-sided infiltrates. No pleural effusion or pneumothorax. MEDIASTINUM AND HILAR STRUCTURES: No masses or contour abnormalities. HEART AND VASCULAR STRUCTURES: Heart normal size. No evidence for failure. BONES: No acute findings. HARDWARE: Clips right upper quadrant post cholecystectomy OTHER: No other significant finding. IMPRESSION: No change in right upper and right middle lobe airspace disease. TECHNICAL DOCUMENTATION: JOB ID: [id number] [employer]- All Rights Reserved Reading location - IP/workstation name: [email or web address]
[2018-05-22] MEDS: ENOXAPARIN SODIUM INJ 40 MG/0.4 ML DISP.SYRIN SUBCUT SCH (09:54)
[2018-05-22] MEDS: HYDROXYZINE PAMOATE 25 MG CAPSULE PO SCH (09:54)
[2018-05-22] MEDS: DOCUSATE SODIUM 100 MG CAPSULE PO SCH ×2 (09:54→17:10)
[2018-05-22] MEDS: GUAIFENESIN 600 MG TABLET.SA PO SCH ×2 (09:54→21:45)
[2018-05-22] MEDS: FLUTICASONE NASAL SPRAY 50 MCG/SPRY 120 SPRAY/16 GM NASL SCH (09:54)
[2018-05-22] MEDS: LACTOBACILLUS ACIDOPHILUS 250 MG TAB PO SCH ×2 (09:54→17:11)
[2018-05-22] MEDS: CEFTRIAXONE 1 GM/D5W RTU 1 GM/50 ML RTUPB IV SCH (09:54)
[2018-05-22] MEDS: POLYETHYLENE GLYCOL 3350 POWDER 17 GM/1 PACKET PO PRN ×2 (09:55→21:45)
[2018-05-22] MEDS: NYSTATIN/DEXAMETH/DIPHEN SUSP 120 ML PO SCH ×4 (10:08→21:45)
--- NOTE | 2018-05-22 14:13 | PDOC PROGRESS REPORT ---
Subjective Progress Note for:: 05/22/18 Subjective:: The patient is complaining of odynophagia. Her orange juice as well as her pork chop cause discomfort. Applesauce was tolerated. She is receiving Magic mouthwash. She also complains of a vaginal yeast infection Reason For Visit: PNEUMONIA Physical Exam Vital Signs: Temp Pulse Resp BP Pulse Ox 98.7 F 72 16 120/63 99 05/22/18 11:24 05/22/18 11:24 05/22/18 11:24 05/22/18 11:24 05/22/18 11:24 Intake & Output 05/21/18 05/22/18 05/23/18 06:59 06:59 06:59 Intake Total 1105 1658 50 Output Total 2 Balance 1103 1658 50 Weight 81.2 kg 80.7 kg General appearance: PRESENT: no acute distress, cooperative, well-developed Head exam: PRESENT: normocephalic Eye exam: PRESENT: conjunctiva pink Ear exam: PRESENT: normal external ear exam Mouth exam: PRESENT: moist, tongue midline, other - Examination of the oral cavity and oropharynx did not reveal any white patches. Respiratory exam: PRESENT: crackles - On the right, symmetrical, unlabored. ABSENT: accessory muscle use, rales, rhonchi, wheezes Cardiovascular exam: PRESENT: RRR, +S1, +S2 GI/Abdominal exam: PRESENT: normal bowel sounds, soft. ABSENT: distended, tenderness Gentrourinary exam: PRESENT: other - Did not examine but patient reports fungal vaginitis Neurological exam: PRESENT: alert, awake, oriented to person, oriented to place, oriented to time, oriented to situation, CN II-XII grossly intact Psychiatric exam: PRESENT: appropriate affect. ABSENT: agitated, anxious Focused psych exam: ABSENT: restlessness Skin exam: PRESENT: other - Right upper lip with slightly reddened area Results Laboratory Results: 05/22/18 03:32 05/22/18 03:32 05/22/18 05/22/18 03:32 03:32 WBC 8.2 RBC 3.61 L Hgb 10.5 L Hct 31.3 L MCV 87 MCH 29.2 MCHC 33.6 RDW 13.3 Plt Count 313 Seg Neutrophils % 60.6 Lymphocytes % 25.7 Monocytes % 10.3 Eosinophils % 2.1 Basophils % 1.3 Absolute Neutrophils 5.0 Absolute Lymphocytes 2.1 Absolute Monocytes 0.8 Absolute Eosinophils 0.2 Absolute Basophils 0.1 Sodium 140.2 Potassium 4.6 Chloride 104 Carbon Dioxide 27 Anion Gap 9 BUN 11 Creatinine 0.84 Est GFR ( Amer) > 60 Est GFR (Non-Af Amer) > 60 Glucose 115 H Calcium 9.1 05/19/18 07:36 Sputum Gram Stain - Final 05/19/18 07:36 Sputum Sputum Culture - Final Escherichia Coli Normal Aneta Absent Impressions: Chest X-Ray 05/22/18 06:00 IMPRESSION: No change in right upper and right middle lobe airspace disease. Assessment & Plan - Diagnosis (1) Pneumonia Qualifiers: Pneumonia type: due to unspecified organism Laterality: right Lung locati on: lower lobe of lung Qualified Code(s): J18.1 - Lobar pneumonia, unspecified organism Is this a current diagnosis for this admission?: Yes Plan: Continue Rocephin and azithromycin. White blood cell count is normalized. Breathing appears easier. I explained the x-ray leg and told the patient progress is based on how she feels. She was up walking in the hallway as well. We will try and taper the oxygen to off. (2) Back pain Qualifiers: Back pain location: low back pain Chronicity: chronic Back pain lateralit y: midline Sciatica presence: unspecified whether sciatica present Qualified Code(s): M54.5 - Low back pain; G89.29 - Other chronic pain Is this a current diagnosis for this admission?: Yes Plan: Chronic and stable (3) Gastroesophageal reflux Qualifiers: Esophagitis presence: esophagitis presence not specified Qualified Code(s): K21.9 - Gastro-esophageal reflux disease without esophagitis Is this a current diagnosis for this admission?: Yes Plan: Well controlled. Continue same regimen. (4) Odynophagia Is this a current diagnosis for this admission?: Yes Plan: Continue Magic mouthwash. I cannot visualize any thrush in the oral cavity. Patient reports symptoms are more in the esophagus. (5) Vaginitis due to Adina Is this a current diagnosis for this admission?: Yes Plan: I will administer a single dose of fluconazole. I will hold the patient's hydroxyzine tonight due to potential interaction. This should also help the esophagus if it is yeast related. The patient is on lactobacillus while on the antibiotics. - Time Time Spent with patient: Less than 15 minutes Medications reviewed and adjusted accordingly: Yes Anticipated discharge: Home Within: within 24 hours - Plan Summary Plan Summary: The patient is doing better. Plan as above. Taper oxygen off with anticipated discharge tomorrow. Patient is in agreement with this plan.
[2018-05-22] MEDS ORDERED: FLUCONAZOLE 200 MG/NS RTU 200 MG/100 ML RTUPB IV SCH (18:00)
[2018-05-22] MEDS: AZITHROMYCIN 500 MG in DEXTROSE 5%-WATER 250 ML IV SCH (21:45)
[2018-05-23] MEDS: IPRATROPIUM/ALBUTEROL 0.5-2.5 MG/3 ML AMPUL NEB SCH ×2 (00:11→09:11)
[2018-05-23] MEDS: GABAPENTIN 300 MG CAPSULE PO SCH ×2 (05:57→13:53)
[2018-05-23] MEDS: LANSOPRAZOLE 15 MG TAB.RAP.DR PO SCH (05:57)
[2018-05-23] MEDS: OXYCODONE HCL IR 5 MG TABLET PO PRN ×2 (05:58→13:53)
[2018-05-23] MEDS: DICYCLOMINE HCL 10 MG CAPSULE PO SCH ×2 (08:39→10:39)
[2018-05-23] MEDS: CEFTRIAXONE 1 GM/D5W RTU 1 GM/50 ML RTUPB IV SCH (09:22)
[2018-05-23] MEDS: POLYETHYLENE GLYCOL 3350 POWDER 17 GM/1 PACKET PO PRN (09:22)
[2018-05-23] MEDS: NYSTATIN/DEXAMETH/DIPHEN SUSP 120 ML PO SCH ×2 (09:22→13:53)
[2018-05-23] MEDS: LACTOBACILLUS ACIDOPHILUS 250 MG TAB PO SCH (09:23)
[2018-05-23] MEDS: FLUTICASONE NASAL SPRAY 50 MCG/SPRY 120 SPRAY/16 GM NASL SCH (09:23)
[2018-05-23] MEDS: ENOXAPARIN SODIUM INJ 40 MG/0.4 ML DISP.SYRIN SUBCUT SCH (09:23)
[2018-05-23] MEDS: DOCUSATE SODIUM 100 MG CAPSULE PO SCH (09:23)
[2018-05-23] MEDS: GUAIFENESIN 600 MG TABLET.SA PO SCH (09:23)
[2018-05-23] MEDS: HYDROXYZINE PAMOATE 25 MG CAPSULE PO SCH (09:27)
--- NOTE | 2018-05-23 13:29 | PDOC DISCHARGE SUMMARY ---
General - Admit/Disc Date/PCP Admission Date/Primary Care Provider: 05/18/18 11:25 FRED MANUEL MD Discharge Date: 05/23/18 - Discharge Diagnosis (1) Back pain Is this a current diagnosis for this admission?: Yes (2) Gastroesophageal reflux Is this a current diagnosis for this admission?: Yes (3) Odynophagia Is this a current diagnosis for this admission?: Yes (4) Pneumonia Is this a current diagnosis for this admission?: Yes (5) Vaginitis due to Adina Is this a current diagnosis for this admission?: Yes - Additional Information Resuscitation Status: Full Code Discharge Diet: As Tolerated Discharge Activity: Activity As Tolerated Prescriptions: Cefuroxime Axetil [Ceftin 500 mg Tablet] 1 tab PO BID #5 tablet Home Medications: Dicyclomine HCl [Bentyl 10 mg Capsule] 10 mg PO QID 05/18/18 Fluticasone Propionate [Flonase Nasal [place] 50 Mcg/[place] 16 gm] 1 spray NASL DAILY 05/18/18 Gabapentin [Neurontin] 600 mg PO Q8 05/18/18 Hydroxyzine HCl [Atarax 25 mg Tablet] 25 mg PO Q12 05/18/18 Omeprazole 20 mg PO BID 05/18/18 Oxycodone HCl 15 mg PO Q6HP PRN 05/18/18 Cefuroxime Axetil [Ceftin 500 mg Tablet] 1 tab PO BID #5 tablet 05/23/18 Guaifenesin [Mucinex Sr 600 mg Tablet.sa] 600 mg PO Q12 tablet.sa 05/23/18 Lactobacillus Acidophilus [Bacid 250 mg Tablet] 500 mg PO BID tab 05/23/18 Lansoprazole [Prevacid 15 mg Odt Tablet] 15 mg PO BID@0600,1700 tab.rap 05/23/18 Normal Saline [Saline Flush 2.5 ml Monoject Prefil Syrin] 2.5 ml IV Q8 disp.syrin 05/23/18 History of Present Illness Patient complains of: Patient was admitted with pneumonia, right lower middle lobe, and treated with IV antibiotics History of Present Illness: JOSEPH KIDD is a 72 year old female Hospital Course Hospital Course: Patient was admitted with pneumonia, right lower middle lobe, she has been treated while in hospital with empiric ceftriaxone and Zithromax and patient has responded pretty well to this regimen. She has been stable from a respiratory standpoint. At this point it is felt that she can be discharged home to complete her antibiotic regimen. Sputum culture yielded E. coli and cultures are negative. Hemodynamically patient has improved and with no further i nterventions been planned she is being discharged home. Repeat chest x-ray done reveals no change in right upper and right middle lobe airspace disease and I would suggest outpatient chest x-ray follow-up with her PCP if clinically indicated. Patient was treated for Adina vaginitis. Physical Exam Vital Signs: Temp Pulse Resp BP Pulse Ox 99.0 F 79 17 106/56 L 91 L 05/23/18 11:20 05/23/18 11:20 05/23/18 11:20 05/23/18 11:20 05/23/18 11:20 Intake & Output 05/22/18 05/23/18 05/24/18 06:59 06:59 06:59 Intake Total 1658 1478 50 Balance 1658 1478 50 Weight 80.7 kg 81.1 kg General appearance: PRESENT: no acute distress, well-developed, well-nourished Head exam: PRESENT: atraumatic, normocephalic Eye exam: PRESENT: conjunctiva pink, EOMI, PERRLA. ABSENT: scleral icterus Ear exam: PRESENT: normal external ear exam Mouth exam: PRESENT: moist, tongue midline Neck exam: ABSENT: carotid bruit, JVD, lymphadenopathy, thyromegaly Respiratory exam: PRESENT: clear to auscultation ravindra. ABSENT: rales, rhonchi, wheezes Cardiovascular exam: PRESENT: RRR. ABSENT: diastolic murmur, rubs, systolic murmur Pulses: PRESENT: normal dorsalis pedis pul Vascular exam: PRESENT: normal capillary refill GI/Abdominal exam: PRESENT: normal bowel sounds, soft. ABSENT: distended, guarding, mass, organolmegaly, rebound, tenderness Rectal exam: PRESENT: deferred Extremities exam: PRESENT: full ROM. ABSENT: calf tenderness, clubbing, pedal edema Neurological exam: PRESENT: alert, awake, oriented to person, oriented to place, oriented to time, oriented to situation, CN II-XII grossly intact. ABSENT: motor sensory deficit Psychiatric exam: PRESENT: appropriate affect, normal mood. ABSENT: homicidal ideation, suicidal ideation Skin exam: PRESENT: dry, intact, warm. ABSENT: cyanosis, rash Results Laboratory Results: 05/22/18 03:32 05/22/18 03:32 05/18/18 11:24 Blood Blood Culture - Final NO GROWTH IN 5 DAYS 05/18/18 11:04 Blood Blood Culture - Final NO GROWTH IN 5 DAYS Impressions: Chest X-Ray 05/22/18 06:00 IMPRESSION: No change in right upper and right middle lobe airspace disease. Qualifiers - * PATIENT BEING DISCHARGED WITH ANY OF THE FOLLOWING DIAGNOSIS: No Plan Discharge Plan: Follow up with PCP Time Spent: Greater than 30 Minutes
[2018-05-23 13:32] VITALS: BP 119/48
== END 2018-05-23 14:52 | disposition home or self-care (01) | DRG 195 ==
LOC: ER 07:14 → EH 11:25 → 4W 14:05
PROVIDERS: ADMIT Internal Medicine; ATTEND Internal Medicine
DX: J18.1 Lobar pneumonia, unspecified organism (principal); K21.9 Gastro-esophageal reflux disease without esophagitis; M54.5 Low back pain; R13.11 Dysphagia, oral phase; B37.3 Candidiasis of vulva and vagina; F41.9 Anxiety disorder, unspecified; Z60.2 Problems related to living alone
CPT/HCPCS: 36415; 71046; 80048; 80053; 81001; 85025; 85027; 87040; 87070; 87077; 87186; 87205; 87804; 93005; 93010; 94640; 96361; 96365; 99284; J0456; J0696; J1450; J1650; J3490; J7030; J7060; J7620

== ENCOUNTER → 2018-07-03 | Outpatient (CLI) | payer MEDICARE, MEDICAID ==
--- NOTE | 2018-07-03 12:46 | RADIOLOGY REPORT (SQ) ---
EXAM DESCRIPTION: CHEST PA/LATERAL COMPLETED DATE/TIME: 07/03/2018 10:53 am REASON FOR STUDY: LOBAR PNEUMONIA, UNSPECIFIED ORGANISM COMPARISON: 05/22/2018 EXAM PARAMETERS: NUMBER OF VIEWS: two views TECHNIQUE: Digital Frontal and Lateral radiographic views of the chest acquired. RADIATION DOSE: NA LIMITATIONS: none FINDINGS: LUNGS AND PLEURA: There is significant improvement in the right lung. There is still mini mal opacification in the right base. MEDIASTINUM AND HILAR STRUCTURES: No masses or contour abnormalities. HEART AND VASCULAR STRUCTURES: Heart normal size. No evidence for failure. BONES: No acute findings. HARDWARE: None in the chest. OTHER: No other significant finding. IMPRESSION: There is almost complete resolution of the prior pneumonia. There is minimal residual c hange in the right base. TECHNICAL DOCUMENTATION: JOB ID: [id number] [employer]- All Rights Reserved Reading location - IP/workstation name: [email or web address]
== END ==
LOC: OD 10:33
PROVIDERS: ATTEND Family Medicine Geriatric Medicine
DX: J18.1 Lobar pneumonia, unspecified organism (principal)
CPT/HCPCS: 71046

== ENCOUNTER → 2018-08-07 | Outpatient (CLI) | payer MEDICARE, MEDICAID ==
--- NOTE | 2018-08-07 15:49 | RADIOLOGY REPORT (SQ) ---
EXAM DESCRIPTION: HIP RIGHT AP/LATERAL COMPLETED DATE/TIME: 08/07/2018 3:24 pm REASON FOR STUDY: PAIN IN RT HIP M25.551 PAIN IN RIGHT HIP R07.81 PLEURODYNIA COMPARISON: None. NUMBER OF VIEWS: Two views. TECHNIQUE: AP pelvis and additional frog-leg view of the right hip. LIMITATIONS: None. FINDINGS: MINERALIZATION: Osteopenia. RIGHT HIP: No fracture or dislocation. No worrisome bone lesions. LEFT HIP: No fracture or dislocation. No worrisome bone lesions. PUBIS AND ISCHIUM: No fracture. PELVIS: No fracture. SACRUM: No fracture or dislocation. No worrisome bone lesions. LOWER LUMBAR SPINE: Lower lumbar degenerative disc disease. SOFT TISSUES: No findings. OTHER: No other significant finding. IMPRESSION: NEGATIVE STUDY OF THE RIGHT HIP. NO RADIOGRAPHIC EVIDENCE OF ACUTE INJURY. TECHNICAL DOCUMENTATION: JOB ID: [id number] [employer]- All Rights Reserved Reading location - IP/workstation name: [email or web address]
--- NOTE | 2018-08-07 15:52 | RADIOLOGY REPORT (SQ) ---
EXAM DESCRIPTION: RIBS RIGHT W/PA CHEST COMPLETED DATE/TIME: 08/07/2018 3:25 pm REASON FOR STUDY: PLEURODYNIA M25.551 PAIN IN RIGHT HIP R07.81 PLEURODYNIA COMPARISON: Chest radiograph 07/03/2018 TECHNIQUE: Frontal view of the chest and additional views of the right ribs acquired. NUMBER OF VIEWS: Five view. LIMITATIONS: None. FINDINGS: FRONTAL CXR: No pneumothorax. No pleural effusion. No atelectasis or infiltrates. RIBS: No displaced rib fractures. No lytic or blastic bony lesions. OTHER: No other significant finding. IMPRESSION: NO PNEUMOTHORAX. NO DISPLACED RIB FRACTURES. COMMENT: SITE OF TRAUMA/COMPLAINT MARKED/STAMP COMPLETED: NO. TECHNICAL DOCUMENTATION: JOB ID: [id number] [employer]- All Rights Reserved Reading location - IP/workstation name: [email or web address]
== END ==
LOC: OD 14:53
PROVIDERS: ATTEND Family Medicine Geriatric Medicine
DX: M25.551 Pain in right hip (principal); R07.81 Pleurodynia

== ENCOUNTER 2018-09-17 12:23 | Emergency (ER) | payer MEDICARE, MEDICAID ==
--- NOTE | 2018-09-17 12:39 | ER Document Report ---
ED Medical Screen (RME) - General Chief Complaint: Shortness Of Breath Stated Complaint: FEVER Time Seen by Provider: 09/17/18 12:38 Primary Care Provider: FRED MANUEL MD [Primary Care Provider] - Follow up as needed TRAVEL OUTSIDE OF THE [place] IN LAST 30 DAYS: No - HPI Notes: 09/17/18 12:39 Patient is a 73-year-old female with a history of pneumonia and GERD who presents complaining of chest tightness, dry cough, shortness of breath, fever that began last evening. Patient states that she has also developed hoarseness in her voice. Patient states that these are similar symptoms to when she was admitted in May for pneumonia. She is otherwise able to eat and drink without difficulty. She is urinating normally and having normal bowel movements. Denies any prolonged immobilization, distance travel, recent surgery/trauma, personal cancer history, hormone use, smoking, or previous DVT/PE. Denies BERNARD, fever, neck pain, Abd pain, or rash. I have treated and performed a rapid initial assessment of this patient. A comprehensive ED assessment and evaluation of the patient, analysis of test results and completion of medical decision making process will be conducted by additional ED providers. PHYSICAL EXAMINATION: GENERAL: Well-appearing, well-nourished and in no acute distress. A&Ox4. Answers questions appropriately. LUNGS: Diminished at the base bilaterally. No retractions. HEART: Regular rate and rhythm without murmurs, rubs, gallops. Extremities: No cyanosis, clubbing, or edema b/l. No lower extremity asymmetry. [place] negative bilaterally. NEUROLOGICAL: Normal speech, normal gait. PSYCH: Normal mood, normal affect. - Related Data Allergies/Adverse Reactions: promethazine HCl [From Phenergan] Allergy (Severe, Verified 09/17/18 12:24) Psychosis nitrofurantoin macrocrystalline [From Macrodantin] Allergy (Mild, Verified 09/17/18 12:24) Hives Sulfa (Sulfonamide Antibiotics) Allergy (Mild, Verified 09/17/18 12:24) itching ciprofloxacin [From Cipro] Allergy (Unknown, Verified 09/17/18 12:24) hydromorphone HCl [From Dilaudid] Adverse Reaction (Mild, Verified 09/17/18 12:24) Nausea Past Medical History - Past Medical History Cardiac Medical History: Denies: Hx Atrial Fibrillation, Hx Congestive Heart Failure, Hx Heart Attack Pulmonary Medical History: Denies: Hx Asthma, Hx Respiratory Failure, Hx Sleep Apnea Neurological Medical History: Denies: Hx Migraine Endocrine Medical History: Denies: Hx Diabetes Mellitus Type 1, Hx Diabetes Mellitus Type 2 Renal/ Medical History: Denies: Hx Peritoneal Dialysis GI Medical History: Reports: Hx Gastroesophageal Reflux Disease Musculoskeltal Medical History: Reports Hx Arthritis Skin Medical History: Denies Hx MRSA Psychiatric Medical History: Reports: Hx Anxiety - severe, Hx Depression Denies: Hx Bipolar Disorder, Hx Dementia Infectious Medical History: Reports: Hx C-Diff Past Surgical History: Reports: Hx Cholecystectomy, Hx Hysterectomy, Hx Orthopedic Surgery - old back injury - Immunizations Hx Diphtheria, Pertussis, Tetanus Vaccination: Yes Physical Exam - Vital signs Vitals: Temp Pulse Resp BP Pulse Ox 99.4 F 55 L 16 135/54 H 94 09/17/18 12:25 09/17/18 12:25 09/17/18 12:25 09/17/18 12:25 09/17/18 12:25 Course - Vital Signs Vital signs: Temp Pulse Resp BP Pulse Ox 99.4 F 55 L 16 135/54 H 94 09/17/18 12:25 09/17/18 12:25 09/17/18 12:25 09/17/18 12:25 09/17/18 12:25 Doctor's Discharge - Discharge Referrals: FRED MANUEL MD [Primary Care Provider] - Follow up as needed
--- NOTE | 2018-09-17 13:34 | RADIOLOGY REPORT (SQ) ---
EXAM DESCRIPTION: CHEST 2 VIEWS COMPLETED DATE/TIME: 09/17/2018 1:15 pm REASON FOR STUDY: cough, fever, cp COMPARISON: Two-view chest 07/03/2018, 05/18/2018 EXAM PARAMETERS: NUMBER OF VIEWS: two views TECHNIQUE: Digital Frontal and Lateral radiographic views of the chest acquired. RADIATION DOSE: NA LIMITATIONS: none FINDINGS: LUNGS AND PLEURA: No opacities, masses or pneumothorax. No pleural effusion. MEDIASTINUM AND HILAR STRUCTURES: No masses or contour abnormalities. HEART AND VASCULAR STRUCTURES: Heart normal size. No evidence for failure. BONES: No acute findings. HARDWARE: None in the chest. OTHER: No other significant finding. IMPRESSION: NO ACUTE RADIOGRAPHIC FINDING IN THE CHEST. TECHNICAL DOCUMENTATION: JOB ID: [id number] [employer]- All Rights Reserved Reading location - IP/workstation name: [email or web address]
[2018-09-17 13:40] LABS: ABSOLUTE BASOPHILS # (AUTO) 0.1 10^3/uL (0.0-0.2); ABSOLUTE EOSINOPHILS # (AUTO) 0.1 10^3/uL (0.0-0.6); ABSOLUTE LYMPHOCYTES (AUTO) 1.8 10^3/uL (0.5-4.7); ABSOLUTE MONOCYTES (AUTO) 0.8 10^3/uL (0.1-1.4); ABSOLUTE NEUT (AUTO) 6.1 10^3/uL (1.7-8.2); BASOPHILS % (AUTO) 0.7 % (0-2); EOSINOPHILS % (AUTO) 1.2 % (0-6); HEMOGLOBIN 11.6 g/dL (12.0-15.5); LYMPHOCYTES % (AUTO) 20.6 % (13-45); MEAN CORPUSCULAR HEMOGLOBIN 28.2 pg (27.0-33.4); MEAN CORPUSCULAR HGB CONC 32.2 g/dL (32.0-36.0); MEAN CORPUSCULAR VOLUME 88 fl (80-97); MONOCYTES % (AUTO) 8.8 % (3-13); PLATELET COUNT 278 10^3/uL (150-450); RED CELL DISTRIBUTION WIDTH 14.3 % (11.5-14.0); SEGMENTED NEUTROPHILS % (AUTO) 68.7 % (42-78); TOTAL CELLS COUNTED % (AUTO) 100 %; WHITE BLOOD COUNT 8.9 10^3/uL (4.0-10.5)
[2018-09-17 13:45] LABS: ALANINE AMINOTRANSFERASE 8 U/L (9-52); ALKALINE PHOSPHATASE 82 U/L (38-126); ANION GAP 9 (5-19); ASPARTATE AMINO TRANSFERASE 17 U/L (14-36); BILIRUBIN,DIRECT 0.2 mg/dL (0.0-0.4); BILIRUBIN,TOTAL 0.5 mg/dL (0.2-1.3); BLOOD UREA NITROGEN 16 mg/dL (7-20); CALCIUM 9.2 mg/dL (8.4-10.2); CARBON DIOXIDE 29 mmol/L (22-30); CHLORIDE 104 mmol/L (98-107); GLUCOSE 96 mg/dL (75-110); POTASSIUM 4.3 mmol/L (3.6-5.0); SODIUM 142.3 mmol/L (137-145); TOTAL PROTEIN 7.1 g/dL (6.3-8.2)
[2018-09-17 14:37] LABS: APPEARANCE,URINE TURBID; BILIRUBIN,URINE NEGATIVE (NEGATIVE); COLOR,URINE YELLOW; GLUCOSE, URINE NEGATIVE (NEGATIVE); KETONES,URINE NEGATIVE (NEGATIVE); LEUKOCYTE ESTERASE,URINE LARGE (NEGATIVE); NITRITE,URINE POSITIVE (NEGATIVE); PROTEIN,URINE NEGATIVE (NEGATIVE); URINE SPECIFIC GRAVITY 1.021; UROBILINOGEN,URINE NEGATIVE mg/dL (<2.0)
[2018-09-17] MEDS ORDERED: CEFTRIAXONE 1 GM/D5W RTU 1 GM/50 ML RTUPB IV ONE (14:55)
--- NOTE | 2018-09-17 15:43 | ER Document Report ---
ED General - General Chief Complaint: Shortness Of Breath Stated Complaint: FEVER Time Seen by Provider: 09/17/18 12:38 Primary Care Provider: FRED MANUEL MD [Primary Care Provider] - Follow up in 3-5 days Notes: Patient is a 73-year-old female with history of severe GERD that presents to the emergency department for chief complaint of cough, reflux, and fever. Patient states she has been having a cough, and significant reflux, which she has a history of, she is worried she may have had an aspiration pneumonia, last night she had a fever of 102 and was concerned about this as well, she states she has had some dysuria and some urinary frequency as well, that she is worried about a possible urinary tract infection. She states her cough has been dry, nonproductive, she is felt somewhat short of breath, but having more of a laryngitis from her severe reflux. She denies having any chest pain, nausea, vo miting, flank pain or abdominal pain or diarrhea. Past Medical History: GERD, chronic low back pain, peripheral neuropathy Past Surgical History: Hysterectomy, cholecystectomy Social History: Denies current tobacco, alcohol or drug use. Family History: Reviewed and noncontributory for presenting illness Allergies: Reviewed, see documented allergy list. REVIEW OF SYSTEMS: Other than noted above, the 12 point review of systems was reviewed with the patient and were negative, all pertinent findings are included in the HPI. PHYSICAL EXAMINATION: Vital signs reviewed, nursing noted reviewed. GENERAL: Elderly female, no acute distress HEAD: Atraumatic, normocephalic. EYES: Eyes appear normal, extraocular movements intact, sclera anicteric, conjunctiva are normal. ENT: nares patent, oropharynx clear without exudates. Moist mucous membranes. NECK: Normal range of motion, supple without lymphadenopathy LUNGS: Breath sounds clear to auscultation bilaterally and equal. No wheezes ra les or rhonchi. No acute respiratory distress. HEART: Heart rate bradycardic, regular rhythm ABDOMEN: Soft, mild suprapubic tenderness to palpation, normoactive bowel sounds. No rebound, guarding, or rigidity. No masses appreciated. EXTREMITIES: Nontender, good range of motion, no pitting or edema. NEUROLOGICAL: No focal neurological deficits. Moves all extremities spontaneously Motor and sensory grossly intact on exam. PSYCH: Normal mood, normal affect. SKIN: Warm, Dry, normal turgor, no rashes or lesions noted on exposed skin TRAVEL OUTSIDE OF THE [place] IN LAST 30 DAYS: No - Related Data Allergies/Adverse Reactions: promethazine HCl [From Phenergan] Allergy (Severe, Verified 09/17/18 12:24) Psychosis nitrofurantoin macrocrystalline [From Macrodantin] Allergy (Mild, Verified 09/17/18 12:24) Hives Sulfa (Sulfonamide Antibiotics) Allergy (Mild, Verified 09/17/18 12:24) itching ciprofloxacin [From Cipro] Allergy (Unknown, Verified 09/17/18 12:24) hydromorphone HCl [From Dilaudid] Adverse Reaction (Mild, Verified 09/17/18 12:24) Nausea Past Medical History - Social History Smoking Status: Former Smoker Chew tobacco use (# tins/day): No Frequency of alcohol use: None Family History: Reviewed & Not Pertinent Patient has suicidal ideation: No Patient has homicidal ideation: No - Past Medical History Cardiac Medical History: Denies: Hx Atrial Fibrillation, Hx Congestive Heart Failure, Hx Heart Attack Pulmonary Medical History: Denies: Hx Asthma, Hx Respiratory Failure, Hx Sleep Apnea Neurological Medical History: Denies: Hx Migraine Endocrine Medical History: Denies: Hx Diabetes Mellitus Type 1, Hx Diabetes Mellitus Type 2 Renal/ Medical History: Denies: Hx Peritoneal Dialysis GI Medical History: Reports: Hx Gastroesophageal Reflux Disease Musculoskeletal Medical History: Reports Hx Arthritis Skin Medical History: Denies Hx MRSA Psychiatric Medical History: Reports: Hx Anxiety - severe, Hx Depression Denies: Hx Bipolar Disorder, Hx Dementia Infectious Medical History: Reports: Hx C-Diff Past Surgical History: Reports: Hx Cholecystectomy, Hx Hysterectomy, Hx Orthopedic Surgery - old back injury - Immunizations Hx Diphtheria, Pertussis, Tetanus Vaccination: Yes Physical Exam - Vital signs Vitals: Temp Pulse Resp BP Pulse Ox 99.4 F 55 L 16 135/54 H 94 09/17/18 12:25 09/17/18 12:25 09/17/18 12:25 09/17/18 12:25 09/17/18 12:25 Course - Re-evaluation Re-evalutation: Patient seen and examined vital signs reviewed. Laboratory data and/or imaging were ordered as appropriate for the patient's presenting symptoms and complaint, with consideration of any critical or life threatening conditions that may be associated with their obtained history and exam as noted above. Patient was treated with IV Rocephin, after reviewing UA, it was concerning for urinary tract infection that was nitrite positive Results were reviewed when available and demonstrated UA consistent with UTI, chest x-ray was negative, blood work was otherwise unremarkable. The patient was re-evaluated and was stable Evaluation was most consistent with UTI, will discharge the patient home on cefdinir 300mg bid and have her follow-up with her primary care, and given patient's extensive allergy history. Results were discussed with the patient at this point, after careful consideration I feel that that patient can be discharged from the emergency department, the patient was educated treatments and reasons to return to the emergency department based on their presumed diagnosis as noted above, they were advised to followup with a primary care physician in 2-3 days. Patient was agreeable to plan of care. *Note is created using voice recognition software and may contain spelling, syntax or grammatical errors. Laboratory 09/17/18 09/17/18 09/17/18 12:48 12:48 12:48 WBC 8.9 RBC 4.10 Hgb 11.6 L Hct 36.0 MCV 88 MCH 28.2 MCHC 32.2 RDW 14.3 H Plt Count 278 Seg Neutrophils % 68.7 Lymphocytes % 20.6 Monocytes % 8.8 Eosinophils % 1.2 Basophils % 0.7 Absolute Neutrophils 6.1 Absolute Lymphocytes 1.8 Absolute Monocytes 0.8 Absolute Eosinophils 0.1 Absolute Basophils 0.1 Sodium 142.3 Potassium 4.3 Chloride 104 Carbon Dioxide 29 Anion Gap 9 BUN 16 Creatinine 1.19 Est GFR ( Amer) 54 L Est GFR (Non-Af Amer) 44 L Glucose 96 Calcium 9.2 Total Bilirubin 0.5 Direct Bilirubin 0.2 Neonat Total Bilirubin Not Reportable Neonat Direct Bilirubin Not Reportable Neonat Indirect Bili Not Reportable AST 17 ALT 8 L Alkaline Phosphatase 82 Troponin I < 0.012 Total Protein 7.1 Albumin 4.0 Urine Color Urine Appearance Urine pH Ur Specific [place] Urine Protein Urine Glucose (UA) Urine Ketones Urine Blood Urine Nitrite Urine Bilirubin Urine Urobilinogen Ur Leukocyte Esterase Urine WBC (Auto) Urine RBC (Auto) U Hyaline Cast (Auto) Urine WBC Clumps Squamous Epi Cells Auto U Non-Squamous Epis Auto Urine Ascorbic Acid 09/17/18 14:07 WBC RBC Hgb Hct MCV MCH MCHC RDW Plt Count Seg Neutrophils % Lymphocytes % Monocytes % Eosinophils % Basophils % Absolute Neutrophils Absolute Lymphocytes Absolute Monocytes Absolute Eosinophils Absolute Basophils Sodium Potassium Chloride Carbon Dioxide Anion Gap BUN Creatinine Est GFR ( Amer) Est GFR (Non-Af Amer) Glucose Calcium Total Bilirubin Direct Bilirubin Neonat Total Bilirubin Neonat Direct Bilirubin Neonat Indirect Bili AST ALT Alkaline Phosphatase Troponin I Total Protein Albumin Urine Color YELLOW Urine Appearance TURBID Urine pH 5.0 Ur Specific [place] 1.021 Urine Protein NEGATIVE Urine Glucose (UA) NEGATIVE Urine Ketones NEGATIVE Urine Blood SMALL H Urine Nitrite POSITIVE H Urine Bilirubin NEGATIVE Urine Urobilinogen NEGATIVE Ur Leukocyte Esterase LARGE H Urine WBC (Auto) >182 Urine RBC (Auto) 9 U Hyaline Cast (Auto) 6 Urine WBC Clumps MANY Squamous Epi Cells Auto 1 U Non-Squamous Epis Auto 1 Urine Ascorbic Acid NEGATIVE Chest X-Ray 09/17/18 12:38 IMPRESSION: NO ACUTE RADIOGRAPHIC FINDING IN THE CHEST. - Vital Signs Vital signs: Temp Pulse Resp BP Pulse Ox 98.4 F 55 L 12 113/66 96 09/17/18 14:02 09/17/18 12:25 09/17/18 15:20 09/17/18 15:20 09/17/18 15:20 - Laboratory Result Diagrams: 09/17/18 12:48 09/17/18 12:48 Laboratory results interpreted by me: 09/17/18 09/17/18 09/17/18 12:48 12:48 14:07 Hgb 11.6 L RDW 14.3 H Est GFR ( Amer) 54 L Est GFR (Non-Af Amer) 44 L ALT 8 L Urine Blood SMALL H Urine Nitrite POSITIVE H Ur Leukocyte Esterase LARGE H - EKG Interpretation by Me Additional EKG results interpreted by me: EKG demonstrates sinus bradycardia with a ventricular rate of 51 bpm, normal axis, normal intervals, no evidence of acute ischemia in this EKG. This is compared with prior EKG, where patient's heart rate was 73, but otherwise no acu te changes. Discharge - Discharge Clinical Impression: UTI (urinary tract infection) Qualifiers: Urinary tract infection type: site unspecified Hematuria presence: without hematuria Qualified Code(s): N39.0 - Urinary tract infection, site not specified Condition: Stable Disposition: HOME, SELF-CARE Instructions: Urinary Tract Infection ([facility]) Additional Instructions: Please complete entire course of antibiotics, if symptoms are worsening do not hesitate to return to the emergency department. Prescriptions: RX: Cefdinir 300 mg PO BID #14 capsule Referrals: FRED MANUEL MD [Primary Care Provider] - Follow up in 3-5 days
[2018-09-17 15:51] VITALS: BP 113/66
--- NOTE | 2018-09-17 23:49 | EKG REPORT ---
SEVERITY:- NORMAL ECG - SINUS BRADYCARDIA : Confirmed by: Kylee Medley MD 17-Sep-2018 23:48:31
== END 2018-09-17 16:01 | disposition home or self-care (01) ==
LOC: ER 12:23
DX: N39.0 Urinary tract infection, site not specified (principal); K21.9 Gastro-esophageal reflux disease without esophagitis; R05 Cough; R50.9 Fever, unspecified; R00.1 Bradycardia, unspecified; Z88.8 Allergy status to other drugs, medicaments and biological substances; Z88.1 Allergy status to other antibiotic agents; Z88.2 Allergy status to sulfonamides; Z87.891 Personal history of nicotine dependence
CPT/HCPCS: 93005; 99284; 96365; 36415; 87086; 85025; 87088; 80053; 81001; 84484; 87186; 71046; 93010; J0696

== ENCOUNTER 2018-09-26 09:28 | Emergency (ER) | payer MEDICARE, MEDICAID ==
[2018-09-26 09:39] VITALS: BP 128/56
--- NOTE | 2018-09-26 11:12 | ER Document Report ---
ED Medical Screen (RME) - General Chief Complaint: Vomiting/Diarrhea Stated Complaint: DIZZINESS Time Seen by Provider: 09/26/18 11:05 Primary Care Provider: FRED MANUEL MD [Primary Care Provider] - Follow up as needed Mode of Arrival: Ambulatory Information source: Patient TRAVEL OUTSIDE OF THE [place] IN LAST 30 DAYS: No - HPI Patient complains to provider of: N/V/D, DIZZINESS Notes: 09/26/18 11:10 Patient here with complaints of nausea, vomiting, diarrhea for the last 2 days with some dizziness. She states that she feels like she is going to pass out. No spinning. No chest pain or shortness of breath. She denies any abdominal pain. She denies any dysuria. No unilateral numbness, tingling, weakness. No blurred or loss of vision. Exam No distress, nontoxic-appearing. Lungs clear and equal throughout. Mild systolic murmur. No focal abdominal tenderness on limited triage abdominal exam. No CVA tenderness. Nonfocal neuro exam. Plan CBC, CMP, lipase, urine, troponin, EKG, chest x-ray. An initial examination was made on the patient as part of the triage process, and it was determined a more comprehensive evaluation was necessary. Initial labs were ordered and patient was transferred to another provider in the ED who assumed care and finished evaluation and plan. - Related Data Allergies/Adverse Reactions: promethazine HCl [From Phenergan] Allergy (Severe, Verified 09/26/18 09:29) Psychosis nitrofurantoin macrocrystalline [From Macrodantin] Allergy (Mild, Verified 09/26/18 09:29) Hives Sulfa (Sulfonamide Antibiotics) Allergy (Mild, Verified 09/26/18 09:29) itching ciprofloxacin [From Cipro] Allergy (Unknown, Verified 09/26/18 09:29) hydromorphone HCl [From Dilaudid] Adverse Reaction (Mild, Verified 09/26/18 09:29) Nausea Past Medical History - Past Medical History Cardiac Medical History: Denies: Hx Atrial Fibrillation, Hx Congestive Heart Failure, Hx Heart Attack Pulmonary Medical History: Denies: Hx Asthma, Hx Respiratory Failure, Hx Sleep Apnea Neurological Medical History: Denies: Hx Migraine Endocrine Medical History: Denies: Hx Diabetes Mellitus Type 1, Hx Diabetes Mellitus Type 2 Renal/ Medical History: Denies: Hx Peritoneal Dialysis GI Medical History: Reports: Hx Gastroesophageal Reflux Disease Musculoskeltal Medical History: Reports Hx Arthritis Skin Medical History: Denies Hx MRSA Psychiatric Medical History: Reports: Hx Anxiety - severe, Hx Depression Denies: Hx Bipolar Disorder, Hx Dementia Infectious Medical History: Reports: Hx C-Diff Past Surgical History: Reports: Hx Cholecystectomy, Hx Hysterectomy, Hx Orthopedic Surgery - old back injury - Immunizations Hx Diphtheria, Pertussis, Tetanus Vaccination: Yes Physical Exam - Vital signs Vitals: Temp Pulse Resp BP Pulse Ox 98.5 F 64 16 128/56 H 99 09/26/18 09:38 09/26/18 09:38 09/26/18 09:38 09/26/18 09:38 09/26/18 09:38 Course - Vital Signs Vital signs: Temp Pulse Resp BP Pulse Ox 98.5 F 64 16 128/56 H 99 09/26/18 09:38 09/26/18 09:38 09/26/18 09:38 09/26/18 09:38 09/26/18 09:38 Doctor's Discharge - Discharge Referrals: FRED MANUEL MD [Primary Care Provider] - Follow up as needed
--- NOTE | 2018-09-26 11:55 | RADIOLOGY REPORT (SQ) ---
EXAM DESCRIPTION: CHEST SINGLE VIEW COMPLETED DATE/TIME: 09/26/2018 11:22 am REASON FOR STUDY: DIZZINESS COMPARISON: 09/17/2018 EXAM PARAMETERS: NUMBER OF VIEWS: One view. TECHNIQUE: Single frontal radiographic view of the chest acquired. RADIATION DOSE: NA LIMITATIONS: None. FINDINGS: LUNGS AND PLEURA: No opacities, masses or pneumothorax. No pleural effusion. MEDIASTINUM AND HILAR STRUCTURES: No masses. Contour normal. HEART AND VASCULAR STRUCTURES: Heart normal in size. Normal vasculature. BONES: No acute findings. HARDWARE: None in the chest. OTHER: No other significant finding. IMPRESSION: NO ACUTE RADIOGRAPHIC FINDING IN THE CHEST. TECHNICAL DOCUMENTATION: JOB ID: [id number] [employer]- All Rights Reserved Reading location - IP/workstation name: [email or web address]
[2018-09-26 12:10] LABS: ABSOLUTE EOSINOPHILS # (AUTO) 0.1 10^3/uL (0.0-0.6); ABSOLUTE LYMPHOCYTES (AUTO) 1.4 10^3/uL (0.5-4.7); ABSOLUTE MONOCYTES (AUTO) 0.6 10^3/uL (0.1-1.4); ABSOLUTE NEUT (AUTO) 3.4 10^3/uL (1.7-8.2); BASOPHILS % (AUTO) 0.3 % (0-2); HEMATOCRIT 41.4 % (36.0-47.0); HEMOGLOBIN 13.6 g/dL (12.0-15.5); LYMPHOCYTES % (AUTO) 24.6 % (13-45); MEAN CORPUSCULAR HEMOGLOBIN 28.9 pg (27.0-33.4); MEAN CORPUSCULAR HGB CONC 32.8 g/dL (32.0-36.0); MEAN CORPUSCULAR VOLUME 88 fl (80-97); MONOCYTES % (AUTO) 11.5 % (3-13); PLATELET COUNT 323 10^3/uL (150-450); RED CELL DISTRIBUTION WIDTH 14.5 % (11.5-14.0); SEGMENTED NEUTROPHILS % (AUTO) 62.6 % (42-78); TOTAL CELLS COUNTED % (AUTO) 100 %; WHITE BLOOD COUNT 5.5 10^3/uL (4.0-10.5)
[2018-09-26 12:21] LABS: APPEARANCE,URINE SLIGHTLY-CLOUDY; BILIRUBIN,URINE NEGATIVE (NEGATIVE); COLOR,URINE YELLOW; GLUCOSE, URINE NEGATIVE (NEGATIVE); KETONES,URINE NEGATIVE (NEGATIVE); LEUKOCYTE ESTERASE,URINE MODERATE (NEGATIVE); NITRITE,URINE NEGATIVE (NEGATIVE); PROTEIN,URINE 30 mg/dL (NEGATIVE); URINE SPECIFIC GRAVITY 1.031; UROBILINOGEN,URINE NEGATIVE mg/dL (<2.0)
[2018-09-26 13:02] LABS: ALANINE AMINOTRANSFERASE 20 U/L (9-52); ALBUMIN 4.3 g/dL (3.5-5.0); ALKALINE PHOSPHATASE 81 U/L (38-126); ANION GAP 10 (5-19); ASPARTATE AMINO TRANSFERASE 20 U/L (14-36); BILIRUBIN,DIRECT 0.3 mg/dL (0.0-0.4); BILIRUBIN,TOTAL 0.3 mg/dL (0.2-1.3); BLOOD UREA NITROGEN 16 mg/dL (7-20); CALCIUM 9.5 mg/dL (8.4-10.2); CARBON DIOXIDE 27 mmol/L (22-30); CHLORIDE 105 mmol/L (98-107); GLUCOSE 113 mg/dL (75-110); LIPASE 30.9 U/L (23-300); POTASSIUM 4.2 mmol/L (3.6-5.0); SODIUM 141.6 mmol/L (137-145); TOTAL PROTEIN 7.6 g/dL (6.3-8.2)
[2018-09-26] MEDS ORDERED: ONDANSETRON HCL INJ/PF 4 MG/2 ML SDV IV ONE (13:21)
[2018-09-26] MEDS: NORMAL SALINE 1000 ML 1,000 ML IV PRN ×2 (13:29→14:58)
[2018-09-26] MEDS ORDERED: DIPHENHYDRAMINE HCL 50 MG/ML VIAL IV ONE (13:33)
[2018-09-26] MEDS ORDERED: FAMOTIDINE INJ/PF 20 MG/2 ML SDV IV ONE (13:33)
[2018-09-26] MEDS ORDERED: METHYLPREDNISOLONE INJ 125 MG/2 ML SDV IV ONE (13:33)
--- NOTE | 2018-09-26 13:33 | ER Document Report ---
ED General - General Chief Complaint: Vomiting/Diarrhea Stated Complaint: DIZZINESS Time Seen by Provider: 09/26/18 11:05 Primary Care Provider: FRED MANUEL MD [Primary Care Provider] - Follow up as needed Mode of Arrival: Ambulatory TRAVEL OUTSIDE OF THE [place] IN LAST 30 DAYS: No - HPI Notes: Patient is a 73-year-old female with a history of GERD, chronic low back pain, peripheral neuropathy, hysterectomy, cholecystectomy who presents complaining of nausea, vomiting, watery diarrhea that began 2 days ago. Patient states that she does have some generalized abdominal cramping with occasional pain in her left lower quadrant. She was told previously that she has diverticulosis. Last episode of emesis was this morning. She has not noted any hematemesis, hematuria, or melena. She was seen about 9 days ago and was placed on antibiotics/Omnicef for urinary infection. She has no other concerns or complaints at this time. Denies any headache, fever, neck pain, changes in vision/speech/mentation/hearing, URI, sore throat, chest pain, palpitations, syncope, cough, shortness of breath, wheeze, dyspnea, urinary retention, dysuria, hematuria, back pain, or rash. - Related Data Allergies/Adverse Reactions: promethazine HCl [From Phenergan] Allergy (Severe, Verified 09/26/18 09:29) Psychosis nitrofurantoin macrocrystalline [From Macrodantin] Allergy (Mild, Verified 09/26/18 09:29) Hives Sulfa (Sulfonamide Antibiotics) Allergy (Mild, Verified 09/26/18 09:29) itching ciprofloxacin [From Cipro] Allergy (Unknown, Verified 09/26/18 09:29) hydromorphone HCl [From Dilaudid] Adverse Reaction (Mild, Verified 09/26/18 09:29) Nausea Past Medical History - General Information source: Patient - Social History Smoking Status: Former Smoker Family History: Reviewed & Not Pertinent Patient has suicidal ideation: No Patient has homicidal ideation: No - Past Medical History Cardiac Medical History: Denies: Hx Atrial Fibrillation, Hx Congestive Heart Failure, Hx Heart Attack Pulmonary Medical History: Denies: Hx Asthma, Hx Respiratory Failure, Hx Sleep Apnea Neurological Medical History: Denies: Hx Migraine Endocrine Medical History: Denies: Hx Diabetes Mellitus Type 1, Hx Diabetes Mellitus Type 2 Renal/ Medical History: Denies: Hx Peritoneal Dialysis GI Medical History: Reports: Hx Gastroesophageal Reflux Disease Musculoskeletal Medical History: Reports Hx Arthritis Skin Medical History: Denies Hx MRSA Psychiatric Medical History: Reports: Hx Anxiety - severe, Hx Depression Denies: Hx Bipolar Disorder, Hx Dementia Infectious Medical History: Reports: Hx C-Diff Past Surgical History: Reports: Hx Cholecystectomy, Hx Hysterectomy, Hx Orthopedic Surgery - old back injury - Immunizations Hx Diphtheria, Pertussis, Tetanus Vaccination: Yes Review of Systems - Review of Systems -: Yes All other systems reviewed and negative Physical Exam - Vital signs Vitals: Temp Pulse Resp BP Pulse Ox 98.5 F 64 16 128/56 H 99 09/26/18 09:38 09/26/18 09:38 09/26/18 09:38 09/26/18 09:38 09/26/18 09:38 - Notes Notes: PHYSICAL EXAMINATION: GENERAL: Well-appearing, well-nourished and in no acute distress. HEAD: Atraumatic, normocephalic. EYES: Pupils equal round and reactive to light, extraocular movements intact, sclera anicteric, conjunctiva are normal. ENT: Nares patent and without discharge. oropharynx clear without exudates. No tonsilar hypertrophy or erythema. Moist mucous membranes. NECK: Normal range of motion, supple without lymphadenopathy LUNGS: Breath sounds clear to auscultation bilaterally and equal. No wheezes rales or rhonchi. HEART: Regular rate and rhythm without murmurs, rubs, gallops. ABDOMEN: Soft, nondistended abdomen. No guarding, no rebound. Normal bowel sounds present. No CVA tenderness bilaterally. + mild tenderness LLQ. No t enderness at [place]. Musculoskeletal: FROM to passive/active. Strength 5+/5. Extremities: No cyanosis, clubbing, or edema b/l. Peripheral pulses 2+. Capillary refill less than 3 seconds. NEUROLOGICAL: Cranial nerves grossly intact. Normal speech, normal gait. PSYCH: Normal mood, normal affect. SKIN: Warm, Dry, normal turgor, no rashes or lesions noted. Course - Re-evaluation Re-evalutation: 09/26/18 15:21 Patient is an afebrile, well-hydrated, 73-year-old female who presents with nausea, vomiting, diarrhea which I suspect to be viral and a possible small ileus that was noted on CT scan. Vitals are acceptable without significant tachycardia, tachypnea, or hypoxia. PE is otherwise unremarkable. Patient's abdomen is currently soft and nontender. Patient states that she is feeling much better. She has not had any episodes of emesis or diarrhea throughout her stay. Patient is nontoxic-appearing and is able to tolerate p.o. without difficulty. CBC, CMP, lipase, troponin, EKG, chest x-ray, CT scan otherwise unremarkable. No further work-up warranted at this time. Low suspicion/risk for acute appendicitis, bowel obstruction, acute cholecystitis, acute cholangitis, perforated diverticulitis, incarcerated hernia, pancreatitis, perforated ulcer, peritonitis, sepsis, or other systemic emergent condition at this time. Patient is aware that her condition can change from initial presentation and she needs to monitor symptoms closely and seek medical attention if any acute changes. Conservative measures otherwise for symptoms. Recheck with your PCM in 2-3 days. Consider consult with a psychologists. Return to the ED with any worsening/concerning symptoms otherwise as reviewed in discharge. Patient is in agreement. - Vital Signs Vital signs: Temp Pulse Resp BP Pulse Ox 98.5 F 64 16 128/56 H 99 09/26/18 09:38 09/26/18 09:38 09/26/18 09:38 09/26/18 09:38 09/26/18 09:38 - Laboratory Result Diagrams: 09/26/18 12:00 09/26/18 12:00 Laboratory results interpreted by me: 09/26/18 09/26/18 09/26/18 12:00 12:00 12:00 RDW 14.5 H Est GFR ( Amer) 55 L Est GFR (Non-Af Amer) 45 L Glucose 113 H Urine Protein 30 H Urine Blood SMALL H Ur Leukocyte Esterase MODERATE H Discharge - Discharge Clinical Impression: Nausea vomiting and diarrhea Condition: Stable Disposition: HOME, SELF-CARE Instructions: Antinausea Medication ([facility]), Vomiting ([facility]), Diarrhea, Nonspecific ([facility]) Additional Instructions: Maintain adequate fluid and food intake [place] diet ([employer] Bananas, rice, apples, toast, etc Zofran as needed tylenol if needed Monitor for any worsening symptoms Make sure you are staying hydrated enough to urinate and have normal BM's Recheck with your PCM in 2-3 days Consider consult with Gastroenterology for ongoing/worsening symptoms Return to the ED with any worsening symptoms and/or development of fever, headache, chest pain, palpitations, syncope, shortness of breath, trouble breathing, abdominal pain, n/v/d, blood in stool/urine, weakness, or other worsening symptoms that are concerning to you. Prescriptions: Ondansetron [Zofran Odt 4 mg Tablet] 1 - 2 tab PO Q4H PRN #15 tab.rapdis PRN Reason: For Nausea/Vomiting Forms: Elevated Blood Pressure Referrals: CHRISSIE ALVARADO MD [ACTIVE STAFF] - Follow up as needed FRED MANUEL MD [Primary Care Provider] - 09/29/18
[2018-09-26] MEDS ORDERED: KETOROLAC TROMETHAMINE INJ/PF 30 MG/1 ML SDV ONE (14:12)
[2018-09-26] MEDS ORDERED: KETOROLAC TROMETHAMINE INJ/PF 30 MG/1 ML SDV IV ONE (14:12)
--- NOTE | 2018-09-26 14:52 | RADIOLOGY REPORT (SQ) ---
EXAM DESCRIPTION: CT ABD/PELVIS WITH IV ONLY COMPLETED DATE/TIME: 09/26/2018 2:01 pm REASON FOR STUDY: LLQ pain, n/v/d COMPARISON: 04/14/2018 and 09/16/2012. TECHNIQUE: CT scan of the abdomen and pelvis performed using helical scanning technique with dynamic intravenous contrast injection. No oral contrast. Images reviewed with lung, soft tissue, and bone windows. Reconstructed coronal and sagittal MPR images reviewed. Delayed images for evaluation of the urinary system also acquired. All images stored on PACS. All CT scanners at this facility use dose modulation, iterative reconstruction, and/or weight based d osing when appropriate to reduce radiation dose to as low as reasonably achievable (ALARA). [facility]: Dose Right [facility]: CareDose [facility]: Dose Right [facility]: Teradose 4D [facility]: [facility] [employer] CONTRAST TYPE AND DOSE: contrast/concentration: Isovue 350.00 mg/ml; Total Contrast Delivered: 87.0 ml; Total Saline Delivered: 69.0 ml RENAL FUNCTION: BUN 16 creatinine 1.17. RADIATION DOSE: CT Rad equipment meets quality standard of care and radiation dose reduction techniq ues were employed. CTDIvol: 10.5 - 15.4 mGy. DLP: 1257 mGy-cm.. LIMITATIONS: None. FINDINGS: LOWER CHEST: No significant findings. No nodules or infiltrates. LIVER: Normal size. A few small subcentimeter cysts are unchanged. No masses. No dilated ducts. SPLEEN: Normal size. No focal lesions. PANCREAS: No masses. No significant calcifications. No adjacent inflammation or peripancreatic fluid collections. Pancreatic duct not dilated. GALLBLADDER: Surgically absent. ADRENAL GLANDS: No significant masses or asymmetry. RIGHT KIDNEY AND URETER: No solid masses. No significant calcifications. No hydronephrosis or hyd roureter. LEFT KIDNEY AND URETER: No solid masses. No significant calcifications. No hydronephrosis or hydr oureter. AORTA AND VESSELS: No aneurysm. No dissection. Renal arteries, SMA, celiac without stenosis. RETROPERITONEUM: No retroperitoneal adenopathy, hemorrhage or masses. BOWEL AND PERITONEAL CAVITY: Mild diffuse small bowel dilation. No masses or inflammatory changes. N o free fluid or peritoneal masses. APPENDIX: Surgically absent. PELVIS: No mass. No free fluid. Normal bladder. ABDOMINAL WALL: No masses. No hernias. BONES: No significant or acute findings. OTHER: No other significant finding. IMPRESSION: 1. THERE IS MILD DIFFUSE SMALL BOWEL DILATION. THERE WAS SIMILAR APPEARANCE ON PRIOR STUDIES IN [facility] AND SEPTEMBER 2012. THIS COULD REPRESENT NORMAL VARIATION OR MILD ILEUS. MECHANICAL OBSTRUCTION LESS LIKELY. 2. NO OTHER SIGNIFICANT OR ACUTE FINDING IN THE ABDOMEN OR PELVIS ON CT SCAN WITH IV CONTRAST. TECHNICAL DOCUMENTATION: JOB ID: [id number] Quality ID # [id number]: Final reports with documentation of one or more dose reduction techniques (e.g., Au tomated exposure control, adjustment of the mA and/or kV according to patient size, use of iterative reconstruction technique) 2010 [employer]- All Rights Reserved Reading location - IP/workstation name: [email or web address]
--- NOTE | 2018-09-27 10:32 | EKG REPORT ---
SEVERITY:- NORMAL ECG - SINUS RHYTHM : Confirmed by: Karlie Pizarro 27-Sep-2018 10:32:09
== END 2018-09-26 16:02 | disposition home or self-care (01) ==
LOC: ER 09:28
DX: R11.2 Nausea with vomiting, unspecified (principal); R19.7 Diarrhea, unspecified; K21.9 Gastro-esophageal reflux disease without esophagitis; G89.29 Other chronic pain; M54.5 Low back pain; Z90.710 Acquired absence of both cervix and uterus; Z90.49 Acquired absence of other specified parts of digestive tract; Z88.2 Allergy status to sulfonamides; Z88.3 Allergy status to other anti-infective agents; Z88.6 Allergy status to analgesic agent
CPT/HCPCS: 93005; 99284; 96361; 96374; 96375; 36415; 83690; 85025; 80053; 81001; 84484; 71045; 74177; 93010; J1200; J2930; J1885; J2405; J7030; S0028

== ENCOUNTER 2019-01-28 10:37 | Inpatient (IN) | payer MEDICARE, MEDICAID ==
[2019-01-28 11:22] LABS: ABSOLUTE EOSINOPHILS # (AUTO) 0.1 10^3/uL (0.0-0.6); ABSOLUTE LYMPHOCYTES (AUTO) 1.2 10^3/uL (0.5-4.7); ABSOLUTE MONOCYTES (AUTO) 0.6 10^3/uL (0.1-1.4); ABSOLUTE NEUT (AUTO) 10.4 10^3/uL (1.7-8.2); BASOPHILS % (AUTO) 0.3 % (0-2); EOSINOPHILS % (AUTO) 0.7 % (0-6); HEMATOCRIT 33.9 % (36.0-47.0); HEMOGLOBIN 11.2 g/dL (12.0-15.5); LYMPHOCYTES % (AUTO) 9.6 % (13-45); MEAN CORPUSCULAR HEMOGLOBIN 29.5 pg (27.0-33.4); MEAN CORPUSCULAR VOLUME 89 fl (80-97); MONOCYTES % (AUTO) 5.1 % (3-13); PLATELET COUNT 253 10^3/uL (150-450); RED CELL DISTRIBUTION WIDTH 14.3 % (11.5-14.0); SEGMENTED NEUTROPHILS % (AUTO) 84.3 % (42-78); TOTAL CELLS COUNTED % (AUTO) 100 %; WHITE BLOOD COUNT 12.4 10^3/uL (4.0-10.5)
[2019-01-28 11:28] LABS: INTERNATIONAL RATION (INR) 1.16; PROTHROMBIN TIME 14.9 SEC (11.4-15.4)
[2019-01-28 11:42] LABS: ALBUMIN 3.8 g/dL (3.5-5.0); ALKALINE PHOSPHATASE 65 U/L (38-126); ANION GAP 9 (5-19); ASPARTATE AMINO TRANSFERASE 18 U/L (14-36); BILIRUBIN,DIRECT 0.1 mg/dL (0.0-0.4); BILIRUBIN,TOTAL 0.6 mg/dL (0.2-1.3); BLOOD UREA NITROGEN 17 mg/dL (7-20); CARBON DIOXIDE 29 mmol/L (22-30); CHLORIDE 100 mmol/L (98-107); GLUCOSE 138 mg/dL (75-110); POTASSIUM 3.7 mmol/L (3.6-5.0); TOTAL PROTEIN 6.7 g/dL (6.3-8.2)
--- NOTE | 2019-01-28 11:46 | ER Document Report ---
ED General - General Chief Complaint: Altered Mental Status Stated Complaint: FEVER, DISORIENTED Time Seen by Provider: 01/28/19 11:34 Primary Care Provider: FRED MANUEL MD [Primary Care Provider] - Follow up as needed Notes: 73-year-old female with history of severe GERD that presents to the emergency department for chief complaint of cough, reflux, fever, and overall malaise. Daughter is worried she may have had an aspiration pneumonia versus a possible urinary tract infection. She states her cough has been dry, nonproductive, she is felt somewhat short of breath, but having significant laryngitis from her severe reflux. She denies having any chest pain, nausea, vomiting, flank pain or abdominal pain or diarrhea. TRAVEL OUTSIDE OF THE [place] IN LAST 30 DAYS: No - Related Data Allergies/Adverse Reactions: promethazine HCl [From Phenergan] Allergy (Severe, Verified 01/28/19 10:43) Psychosis nitrofurantoin macrocrystalline [From Macrodantin] Allergy (Mild, Verified 01/28/19 10:43) Hives Sulfa (Sulfonamide Antibiotics) Allergy (Mild, Verified 01/28/19 10:43) itching ciprofloxacin [From Cipro] Allergy (Unknown, Verified 01/28/19 10:43) hydromorphone HCl [From Dilaudid] Adverse Reaction (Mild, Verified 01/28/19 10:43) Nausea Past Medical History - Social History Smoking Status: Never Smoker Chew tobacco use (# tins/day): No Frequency of alcohol use: None Drug Abuse: None Family History: Reviewed & Not Pertinent Patient has suicidal ideation: No Patient has homicidal ideation: No - Past Medical History Cardiac Medical History: Denies: Hx Atrial Fibrillation, Hx Congestive Heart Failure, Hx Heart Attack Pulmonary Medical History: Denies: Hx Asthma, Hx Respiratory Failure, Hx Sleep Apnea Neurological Medical History: Denies: Hx Migraine Endocrine Medical History: Denies: Hx Diabetes Mellitus Type 1, Hx Diabetes Mellitus Type 2 Renal/ Medical History: Denies: Hx Peritoneal Dialysis GI Medical History: Reports: Hx Gastroesophageal Reflux Disease Musculoskeletal Medical History: Reports Hx Arthritis Skin Medical History: Denies Hx MRSA Psychiatric Medical History: Reports: Hx Anxiety - severe, Hx Depression Denies: Hx Bipolar Disorder, Hx Dementia Infectious Medical History: Reports: Hx C-Diff Past Surgical History: Reports: Hx Cholecystectomy, Hx Hysterectomy, Hx Orthopedic Surgery - old back injury - Immunizations Hx Diphtheria, Pertussis, Tetanus Vaccination: Yes Review of Systems - Review of Systems Constitutional: See HPI EENT: No symptoms reported Cardiovascular: See HPI Respiratory: See HPI Gastrointestinal: See HPI Genitourinary: See HPI Female Genitourinary: No symptoms reported Musculoskeletal: No symptoms reported Skin: No symptoms reported Hematologic/Lymphatic: No symptoms reported Neurological/Psychological: No symptoms reported Physical Exam - Vital signs Vitals: Temp Resp BP Pulse Ox 99.5 F 10 L 129/54 H 93 01/28/19 10:55 01/28/19 10:55 01/28/19 10:55 01/28/19 10:55 - Notes Notes: PHYSICAL EXAMINATION: Reviewed vital signs and charting by RN GENERAL: Alert, interacts well. No acute distress. HEAD: Normocephalic, atraumatic. EYES: Pupils equal and round. Extraocular movements intact. ENT: Oral mucosa moist, tongue midline. NECK: Full range of motion. Trachea midline. LUNGS: Clear to auscultation bilaterally, no wheezes, rales, or rhonchi. No respiratory distress. HEART: Regular rate and rhythm. No murmur ABDOMEN: soft, non-tender. No distention. Bowel sounds present EXTREMITIES: Moves all 4 extremities spontaneously. No edema, No cyanosis. PSYCH: Normal affect, normal mood. SKIN: Warm, dry, normal turgor. No rashes or lesions noted. Course - Re-evaluation Re-evalutation: 01/28/19 12:40 Patient overall well-appearing and mildly confused, perseverates about waking up at 5 AM. Daughter is concerned that she is altered and was hallucinating thinking she had answered all of her hands. Work-up complete and chest x-ray shows concern for a possible right lower lobe pneumonia, mild leukocytosis, patient is afebrile but received Tylenol just prior to arrival. Patient also with a urinary tract infection with positive nitrite, large leukesterase. I initiated ceftriaxone 1 g IV and a azithromycin 500 mg p.o. once. I spoke with the hospitalist who is going to accept the patient for admission. - Vital Signs Vital signs: Temp Pulse Resp BP Pulse Ox 99.4 F 10 L 129/54 H 93 01/28/19 11:03 01/28/19 10:55 01/28/19 10:55 01/28/19 10:55 - Laboratory Result Diagrams: 01/28/19 10:54 01/28/19 10:54 Laboratory results interpreted by me: 01/28/19 01/28/19 01/28/19 10:54 10:54 10:56 WBC 12.4 H Hgb 11.2 L Hct 33.9 L RDW 14.3 H Lymph % (Auto) 9.6 L Absolute Neuts (auto) 10.4 H Seg Neutrophils % 84.3 H Est GFR (MDRD) Non-Af 51 L Glucose 138 H POC Glucose 150 H Urine Nitrite Ur Leukocyte Esterase 01/28/19 11:51 WBC Hgb Hct RDW Lymph % (Auto) Absolute Neuts (auto) Seg Neutrophils % Est GFR (MDRD) Non-Af Glucose POC Glucose Urine Nitrite POSITIVE H Ur Leukocyte Esterase SMALL H Discharge - Discharge Clinical Impression: Urinary tract infection Qualifiers: Urinary tract infection type: acute cystitis Hematuria presence: without hematuria Qualified Code(s): N30.00 - Acute cystitis without hematuria Fever Qualifiers: Fever type: unspecified Qualified Code(s): R50.9 - Fever, unspecified Pneumonia Qualifiers: Pneumonia type: due to unspecified organism Laterality: right Lung location: lower lobe of lung Qualified Code(s): J18.1 - Lobar pneumonia, unspecified organism Condition: Good Disposition: ADMITTED INPATIENT Admitting Provider: Antonio (Hospitalist) Unit Admitted: Medical Floor Referrals: FRED MANUEL MD [Primary Care Provider] - Follow up as needed
[2019-01-28 12:05] LABS: APPEARANCE,URINE SLIGHTLY-CLOUDY; BILIRUBIN,URINE NEGATIVE (NEGATIVE); COLOR,URINE AMBER; GLUCOSE, URINE NEGATIVE (NEGATIVE); KETONES,URINE NEGATIVE (NEGATIVE); LEUKOCYTE ESTERASE,URINE SMALL (NEGATIVE); NITRITE,URINE POSITIVE (NEGATIVE); PROTEIN,URINE NEGATIVE (NEGATIVE); URINE SPECIFIC GRAVITY 1.021; UROBILINOGEN,URINE NEGATIVE mg/dL (<2.0)
--- NOTE | 2019-01-28 12:05 | RADIOLOGY REPORT (SQ) ---
EXAM DESCRIPTION: CHEST SINGLE VIEW COMPLETED DATE/TIME: 01/28/2019 11:34 am REASON FOR STUDY: fever COMPARISON: Two-view chest 09/17/2018, 09/26/2018 EXAM PARAMETERS: NUMBER OF VIEWS: One view. TECHNIQUE: Single frontal radiographic view of the chest acquired. RADIATION DOSE: NA LIMITATIONS: None. FINDINGS: LUNGS AND PLEURA: Patchy airspace disease is seen throughout the right lower lobe worrisom e for pneumonia. No pleural effusion. No pneumothorax. Left lung clear. No left pleural effusion or pneumothorax. MEDIASTINUM AND HILAR STRUCTURES: No masses. Contour normal. HEART AND VASCULAR STRUCTURES: Mild cardiomegaly BONES: No acute findings. HARDWARE: None in the chest. OTHER: No other significant finding. IMPRESSION: Patchy right lower lobe airspace disease worrisome for pneumonia TECHNICAL DOCUMENTATION: JOB ID: [id number] [employer]- All Rights Reserved Reading location - IP/workstation name: [email or web address]
[2019-01-28] MEDS ORDERED: CEFTRIAXONE 1 GM/D5W RTU 1 GM/50 ML RTUPB IV ONE (12:33)
[2019-01-28] MEDS ORDERED: AZITHROMYCIN 250 MG TABLET PO ONE (12:34)
[2019-01-28] MEDS ORDERED: ALBUTEROL SULFATE 0.083% NEB 2.5 MG/3 ML AMPUL NEB PRN (12:40)
[2019-01-28] MEDS ORDERED: IPRATROPIUM/ALBUTEROL 0.5-2.5 MG/3 ML AMPUL NEB PRN (12:40)
[2019-01-28 13:04] LABS: A TYPE INFLUENZA AG NEGATIVE (NEGATIVE); B INFLUENZA AG NEGATIVE (NEGATIVE)
--- NOTE | 2019-01-28 15:07 | PDOC H&P ---
History of Present Illness Admission Date/PCP: 01/28/19 12:50 FRED MANUEL MD Patient complains of: Confusion and weakness History of Present Illness: JOSEPH KIDD is a 73 year old female who has a history of severe GERD and arthritis and anxiety and depression. She presents to the emergency room accompanied by her daughter with complaints of generalized weakness and confusion. Apparently the daughter was worried about aspiration pneumonia or UTI. Patient symptoms started 1 day ago acutely. She also describes dysuria. Her mental status is appropriate at the moment when I examined her. Work-up in the emergency room shows right lower lobe infiltrates and possible UTI. Past Medical History Cardiac Medical History: Denies: Atrial Fibrillation, Congestive Heart Failure, Myocardial Infarction Pulmonary Medical History: Denies: Asthma, Respiratory Failure, Sleep Apnea Neurological Medical History: Denies: Migraine Endocrine Medical History: Denies: Diabetes Mellitus Type 1, Diabetes Mellitus Type 2 GI Medical History: Reports: Gastroesophageal Reflux Disease Musculoskeltal Medical History: Reports: Arthritis Psychiatric Medical History: Reports: Depression Denies: Bipolar Disorder, Dementia Hematology: Denies: Anemia, Hemophilia, Bleeding Tendencies Infectious Medical History: Reports: Clostridium Difficile Past Surgical History Past Surgical History: Reports: Cholecystectomy, Hysterectomy, Orthopedic Surgery - old back injury Social History Smoking Status: Never Smoker Frequency of Alcohol Use: None Hx Recreational Drug Use: No Drugs: None Hx Prescription Drug Abuse: No Family History Family History: Reviewed & Not Pertinent Parental Family History Reviewed: Yes Children Family History Reviewed: Yes Sibling(s) Family History Reviewed.: Yes Medication/Allergy Home Medications: Dicyclomine HCl [Bentyl 10 mg Capsule] 10 mg PO QID 05/18/18 Hydroxyzine HCl [Atarax 25 mg Tablet] 25 mg PO Q12HP PRN MDD 100 MG 05/18/18 Oxycodone HCl 15 mg PO Q6HP PRN 05/18/18 Diclofenac Sodium [Voltaren] 2 gm TP TIDP PRN 01/28/19 Gabapentin 800 mg PO Q6 01/28/19 Pantoprazole Sodium 40 mg PO Q12 01/28/19 Triamcinolone Acetonide [Aristocort 0.1% Cream 15 gm] 1 applic TP BIDP PRN 01/28/19 Allergies/Adverse Reactions: promethazine HCl [From Phenergan] Allergy (Severe, Verified 01/28/19 10:43) Psychosis nitrofurantoin macrocrystalline [From Macrodantin] Allergy (Mild, Verified 01/28/19 10:43) Hives Sulfa (Sulfonamide Antibiotics) Allergy (Mild, Verified 01/28/19 10:43) itching ciprofloxacin [From Cipro] Allergy (Unknown, Verified 01/28/19 10:43) hydromorphone HCl [From Dilaudid] Adverse Reaction (Mild, Verified 01/28/19 10:43) Nausea Review of Systems All systems: reviewed and no additional remarkable complaints except as stated Physical Exam Vital Signs: Temp Pulse Resp BP Pulse Ox 99.4 F 10 L 129/54 H 93 01/28/19 11:03 01/28/19 10:55 01/28/19 10:55 01/28/19 10:55 Intake & Output 01/27/19 01/28/19 01/29/19 06:59 06:59 06:59 Intake Total 50 Balance 50 Weight 174 lb Exam: Patient is no acute distress Alert oriented to time place person No anxiety or depression Head: atraumatic normocephalic Pupils: are equal reactive Neck: is supple and trachea is central no lymphadenopathy No pharyngeal erythema or exudates Heart: Regular rate and rhythm Lungs: clear no distress Abdomen: nontender nondistended Neurological exam: unremarkable Musculoskeletal: No joint swelling or effusion chronic lower back pain and tenderness No suicidal or homicidal ideation Results Laboratory Results: 01/28/19 10:54 01/28/19 10:54 01/28/19 01/28/19 01/28/19 10:54 10:54 10:54 WBC 12.4 H RBC 3.80 Hgb 11.2 L Hct 33.9 L MCV 89 MCH 29.5 MCHC 33.0 RDW 14.3 H Plt Count 253 Seg Neutrophils % 84.3 H Sodium 137.6 Potassium 3.7 Chloride 100 Carbon Dioxide 29 Anion Gap 9 BUN 17 Creatinine 1.06 Est GFR ( Amer) > 60 Glucose 138 H Lactic Acid 0.9 Calcium 9.0 Total Bilirubin 0.6 AST 18 Alkaline Phosphatase 65 Total Protein 6.7 Albumin 3.8 Urine Color Urine Appearance Urine pH Ur Specific [place] Urine Protein Urine Glucose (UA) Urine Ketones Urine Blood Urine Nitrite Ur Leukocyte Esterase Urine WBC (Auto) Urine RBC (Auto) 01/28/19 11:51 WBC RBC Hgb Hct MCV MCH MCHC RDW Plt Count Seg Neutrophils % Sodium Potassium Chloride Carbon Dioxide Anion Gap BUN Creatinine Est GFR ( Amer) Glucose Lactic Acid Calcium Total Bilirubin AST Alkaline Phosphatase Total Protein Albumin Urine Color [place] Urine Appearance SLIGHTLY-CLOUDY Urine pH 5.0 Ur Specific [place] 1.021 Urine Protein NEGATIVE Urine Glucose (UA) NEGATIVE Urine Ketones NEGATIVE Urine Blood NEGATIVE Urine Nitrite POSITIVE H Ur Leukocyte Esterase SMALL H Urine WBC (Auto) 20 Urine RBC (Auto) 2 01/28/19 10:54 Troponin I < 0.012 Impressions: Chest X-Ray 01/28/19 11:02 IMPRESSION: Patchy right lower lobe airspace disease worrisome for pneumonia Assessment and Plan - Diagnosis (1) Pneumonia Qualifiers: Pneumonia type: due to unspecified organism Laterality: right Lung location: lower lobe of lung Qualified Code(s): J18.1 - Lobar pneumonia, unspecified organism Is this a current diagnosis for this admission?: Yes Plan: Start empiric IV azithromycin and IV ceftriaxone. Follow-up blood and sputum cultures. Bronchodilators as needed. (2) Urinary tract infection Qualifiers: Urinary tract infection type: acute cystitis Hematuria presence: without hematuria Qualified Code(s): N30.00 - Acute cystitis without hematuria Is this a current diagnosis for this admission?: Yes Plan: IV ceftriaxone as above. Monitor urine culture. (3) Anxiety and depression Is this a current diagnosis for this admission?: Yes Plan: Continue home meds (4) Gastroesophageal reflux Qualifiers: Esophagitis presence: esophagitis presence not specified Qualified Code(s): K21.9 - Gastro-esophageal reflux disease without esophagitis Is this a current diagnosis for this admission?: Yes Plan: Continue PPI
[2019-01-28] MEDS ORDERED: TRIAMCINOLONE ACETONIDE 0.1% CREAM 15 GM TOP PRN (16:18)
[2019-01-28] MEDS ORDERED: ACETAMINOPHEN 325 MG TABLET PO PRN (16:18)
[2019-01-28] MEDS ORDERED: (PENDING PHARMACY ID) (Hydroxyzine Hcl [Atarax 25 Mg Tablet] 25 MG) PO PRN (16:18)
[2019-01-28] MEDS ORDERED: (PENDING PHARMACY ID) (Diclofenac Sodium [Voltaren] 2 GM) TP PRN (16:18)
[2019-01-28] MEDS ORDERED: HYDROXYZINE PAMOATE 25 MG CAPSULE PO PRN (16:30)
[2019-01-28] MEDS: OXYCODONE HCL IR 5 MG TABLET PO PRN (17:36)
[2019-01-28] MEDS: ACETAMINOPHEN 325 MG TABLET PO PRN (17:37)
[2019-01-28] MEDS: GABAPENTIN 400 MG CAPSULE PO SCH ×2 (17:37→23:02)
[2019-01-28] MEDS: ENOXAPARIN SODIUM INJ 40 MG/0.4 ML DISP.SYRIN SUBCUT SCH (17:38)
[2019-01-28] MEDS: DICYCLOMINE HCL 10 MG CAPSULE PO SCH ×2 (17:39→21:14)
--- NOTE | 2019-01-28 17:45 | EKG REPORT ---
SEVERITY:- NORMAL ECG - SINUS RHYTHM : Confirmed by: Rolf Russell MD 28-Jan-2019 17:44:35
[2019-01-28] MEDS ORDERED: (PENDING PHARMACY ID) (Gabapentin [Gabapentin] 800 MG) PO SCH (18:00)
[2019-01-28] MEDS: PANTOPRAZOLE SODIUM 40 MG TABLET.DR PO SCH (21:14)
[2019-01-29] MEDS: GABAPENTIN 400 MG CAPSULE PO SCH ×2 (05:29→12:52)
[2019-01-29] MEDS: OXYCODONE HCL IR 5 MG TABLET PO PRN (05:29)
[2019-01-29] MEDS: ACETAMINOPHEN 325 MG TABLET PO PRN (05:29)
[2019-01-29 06:10] LABS: HEMATOCRIT 31.7 % (36.0-47.0); HEMOGLOBIN 10.6 g/dL (12.0-15.5); MEAN CORPUSCULAR HEMOGLOBIN 29.6 pg (27.0-33.4); MEAN CORPUSCULAR HGB CONC 33.6 g/dL (32.0-36.0); MEAN CORPUSCULAR VOLUME 88 fl (80-97); PLATELET COUNT 252 10^3/uL (150-450); RED BLOOD COUNT 3.59 10^6/uL (3.72-5.28); RED CELL DISTRIBUTION WIDTH 14.3 % (11.5-14.0); WHITE BLOOD COUNT 10.2 10^3/uL (4.0-10.5)
[2019-01-29 06:31] LABS: ANION GAP 8 (5-19); BLOOD UREA NITROGEN 15 mg/dL (7-20); CALCIUM 8.8 mg/dL (8.4-10.2); CARBON DIOXIDE 28 mmol/L (22-30); CHLORIDE 102 mmol/L (98-107); GLUCOSE 99 mg/dL (75-110); POTASSIUM 3.9 mmol/L (3.6-5.0)
[2019-01-29] MEDS ORDERED: CEFTRIAXONE 1 GM/D5W RTU 1 GM/50 ML RTUPB IV SCH (10:00)
[2019-01-29] MEDS ORDERED: AZITHROMYCIN 500 MG in DEXTROSE 5%-WATER 250 ML IV SCH (10:00)
[2019-01-29] MEDS ORDERED: AZITHROMYCIN INJ 500 MG VIAL IV SCH (10:00)
[2019-01-29] MEDS: DICYCLOMINE HCL 10 MG CAPSULE PO SCH ×2 (10:45→13:05)
[2019-01-29] MEDS: PANTOPRAZOLE SODIUM 40 MG TABLET.DR PO SCH (10:45)
[2019-01-29] MEDS: ENOXAPARIN SODIUM INJ 40 MG/0.4 ML DISP.SYRIN SUBCUT SCH (10:46)
--- NOTE | 2019-01-29 11:44 | PDOC DISCHARGE SUMMARY ---
General - Admit/Disc Date/PCP Admission Date/Primary Care Provider: 01/28/19 12:50 FRED MANUEL MD Discharge Date: 01/29/19 - Discharge Diagnosis (1) Pneumonia Is this a current diagnosis for this admission?: Yes (2) Urinary tract infection Is this a current diagnosis for this admission?: Yes (3) Anxiety and depression Is this a current diagnosis for this admission?: Yes (4) Gastroesophageal reflux Is this a current diagnosis for this admission?: Yes - Additional Information Discharge Diet: As Tolerated Discharge Activity: Activity As Tolerated Prescriptions: Levofloxacin [Levaquin 750 mg Tablet] 750 mg PO DAILY #5 tablet Albuterol Sulfate [Ventolin 0.083% Neb 2.5 mg/3 mL Ampul] 2.5 mg NEB Q6HP PRN #60 vial.neb PRN Reason: Home Medications: Dicyclomine HCl [Bentyl 10 mg Capsule] 10 mg PO QID 05/18/18 Hydroxyzine HCl [Atarax 25 mg Tablet] 25 mg PO Q12HP PRN MDD 100 MG 05/18/18 Oxycodone HCl 15 mg PO Q6HP PRN 05/18/18 Acetaminophen [Tylenol] 975 mg PO Q6H PRN 01/28/19 Diclofenac Sodium [Voltaren] 2 gm TP TIDP PRN 01/28/19 Gabapentin 800 mg PO Q6 01/28/19 Pantoprazole Sodium 40 mg PO Q12 01/28/19 Triamcinolone Acetonide [Aristocort 0.1% Cream] 1 applic TP BIDP PRN 01/28/19 Albuterol Sulfate [Ventolin 0.083% Neb 2.5 mg/3 mL Ampul] 2.5 mg NEB Q6HP PRN #60 vial.neb 01/29/19 Levofloxacin [Levaquin 750 mg Tablet] 750 mg PO DAILY #5 tablet 01/29/19 History of Present Illness History of Present Illness: JOESPH KIDD is a 73 year old female who has a history of severe GERD and arthritis and anxiety and depression. She presents to the emergency room accompanied by her daughter with complaints of generalized weakness and confusion. Apparently the daughter was worried about aspiration pneumonia or UTI. Patient symptoms started 1 day ago acutely. She also describes dysuria. Her mental status is appropriate at the moment when I examined her. Work-up in the emergency room shows right lower lobe infiltrates and possible UTI. Hospital Course Hospital Course: (1) Pneumonia She was started on empiric IV azithromycin and IV ceftriaxone. Also received bronchodilators as needed. She is much better today and wants to go home. Will discharge on oral Levaquin. Albuterol as needed prescription was written as well. (2) Urinary tract infection Received IV ceftriaxone as above. Urine culture positive for gram-negative rods. Patient will be discharged on Levaquin. (3) Anxiety and depression Continue home meds (4) Gastroesophageal reflux Continue PPI Physical Exam Vital Signs: Temp Pulse Resp BP Pulse Ox 98.7 F 62 18 102/45 L 92 01/29/19 07:38 01/29/19 10:09 01/29/19 10:09 01/29/19 07:38 01/29/19 10:09 Intake & Output 01/28/19 01/29/19 01/30/19 06:59 06:59 06:59 Intake Total 600 190 Output Total 850 Balance -250 190 Weight 181 lb 7.047 oz Exam: Patient is no acute distress Alert oriented to time place person No anxiety or depression Head: atraumatic normocephalic Pupils: are equal reactive Neck: is supple and trachea is central no lymphadenopathy No pharyngeal erythema or exudates Heart: Regular rate and rhythm Lungs: clear no distress Abdomen: nontender nondistended Neurological exam: unremarkable Musculoskeletal: No joint swelling or effusion chronic lower back pain and tenderness No suicidal or homicidal ideation Results Laboratory Results: 01/29/19 05:00 01/29/19 05:00 01/28/19 01/28/19 01/28/19 10:54 10:54 11:51 WBC RBC Hgb Hct MCV MCH MCHC RDW Plt Count Sodium 137.6 Potassium 3.7 Chloride 100 Carbon Dioxide 29 Anion Gap 9 BUN 17 Creatinine 1.06 Est GFR ( Amer) > 60 Glucose 138 H Lactic Acid 0.9 Calcium 9.0 Total Bilirubin 0.6 AST 18 Alkaline Phosphatase 65 Total Protein 6.7 Albumin 3.8 Urine Color [place] Urine Appearance SLIGHTLY-CLOUDY Urine pH 5.0 Ur Specific [place] 1.021 Urine Protein NEGATIVE Urine Glucose (UA) NEGATIVE Urine Ketones NEGATIVE Urine Blood NEGATIVE Urine Nitrite POSITIVE H Ur Leukocyte Esterase SMALL H Urine WBC (Auto) 20 Urine RBC (Auto) 2 01/29/19 01/29/19 05:00 05:00 WBC 10.2 RBC 3.59 L Hgb 10.6 L Hct 31.7 L MCV 88 MCH 29.6 MCHC 33.6 RDW 14.3 H Plt Count 252 Sodium 138.2 Potassium 3.9 Chloride 102 Carbon Dioxide 28 Anion Gap 8 BUN 15 Creatinine 0.96 Est GFR ( Amer) > 60 Glucose 99 Lactic Acid Calcium 8.8 Total Bilirubin AST Alkaline Phosphatase Total Protein Albumin Urine Color Urine Appearance Urine pH Ur Specific [place] Urine Protein Urine Glucose (UA) Urine Ketones Urine Blood Urine Nitrite Ur Leukocyte Esterase Urine WBC (Auto) Urine RBC (Auto) 01/28/19 10:54 Troponin I < 0.012 Impressions: Chest X-Ray 01/28/19 11:02 IMPRESSION: Patchy right lower lobe airspace disease worrisome for pneumonia Qualifiers - * PATIENT BEING DISCHARGED WITH ANY OF THE FOLLOWING DIAGNOSIS: No Acute Heart Failure - Is this a Heart Failure Patient?: No
[2019-01-29 15:07] VITALS: BP 108/46
== END 2019-01-29 14:45 | disposition home or self-care (01) | DRG 194 ==
LOC: ER 10:37 → EH 12:50 → 4S 15:16
PROVIDERS: ADMIT Family Medicine; ATTEND Family Medicine
DX: J18.1 Lobar pneumonia, unspecified organism (principal); N39.0 Urinary tract infection, site not specified; K21.9 Gastro-esophageal reflux disease without esophagitis; F41.9 Anxiety disorder, unspecified; M19.90 Unspecified osteoarthritis, unspecified site; B96.89 Other specified bacterial agents as the cause of diseases classified elsewhere; F32.9 Major depressive disorder, single episode, unspecified; Z90.710 Acquired absence of both cervix and uterus; Z90.49 Acquired absence of other specified parts of digestive tract; Z88.2 Allergy status to sulfonamides; Z88.6 Allergy status to analgesic agent; Z88.8 Allergy status to other drugs, medicaments and biological substances
CPT/HCPCS: 36415; 71045; 80048; 80053; 81001; 82962; 83605; 84484; 85025; 85027; 85610; 87040; 87086; 87088; 87186; 87804; 93005; 93010; 99285; J0456; J0696; J1650; J3490; J7060

== ENCOUNTER → 2019-03-15 | Outpatient (CLI) | payer MEDICARE, MEDICAID ==
--- NOTE | 2019-03-15 12:52 | RADIOLOGY REPORT (SQ) ---
EXAM DESCRIPTION: CHEST PA/LATERAL COMPLETED DATE/TIME: 03/15/2019 12:23 pm REASON FOR STUDY: LOBAR PNEUMONIA, UNSPECIFIED ORGANISM COMPARISON: 01/28/2019 EXAM PARAMETERS: NUMBER OF VIEWS: two views TECHNIQUE: Digital Frontal and Lateral radiographic views of the chest acquired. RADIATION DOSE: NA LIMITATIONS: none FINDINGS: LUNGS AND PLEURA: No residual infiltrate is present. There is no pleural effusion. There is no mass. MEDIASTINUM AND HILAR STRUCTURES: No masses or contour abnormalities. HEART AND VASCULAR STRUCTURES: Heart normal size. No evidence for failure. BONES: No acute findings. HARDWARE: None in the chest. OTHER: No other significant finding. IMPRESSION: NO SIGNIFICANT RADIOGRAPHIC FINDING IN THE CHEST. TECHNICAL DOCUMENTATION: JOB ID: [id number] [employer]- All Rights Reserved Reading location - IP/workstation name: [email or web address]
== END ==
LOC: OD 12:00
PROVIDERS: ATTEND Family Medicine Geriatric Medicine
DX: J18.1 Lobar pneumonia, unspecified organism (principal); M54.12 Radiculopathy, cervical region; M75.101 Unspecified rotator cuff tear or rupture of right shoulder, not specified as traumatic
CPT/HCPCS: 71046

== ENCOUNTER → 2019-03-15 | Outpatient (CLI) | payer MEDICARE, MEDICAID ==
[2019-03-15 11:40] LABS: ABSOLUTE EOSINOPHILS # (AUTO) 0.2 10^3/uL (0.0-0.6); ABSOLUTE LYMPHOCYTES (AUTO) 1.9 10^3/uL (0.5-4.7); ABSOLUTE MONOCYTES (AUTO) 0.5 10^3/uL (0.1-1.4); BASOPHILS % (AUTO) 0.6 % (0-2); HEMATOCRIT 34.7 % (36.0-47.0); HEMOGLOBIN 11.7 g/dL (12.0-15.5); LYMPHOCYTES % (AUTO) 25.6 % (13-45); MEAN CORPUSCULAR HEMOGLOBIN 30.2 pg (27.0-33.4); MEAN CORPUSCULAR HGB CONC 33.7 g/dL (32.0-36.0); MEAN CORPUSCULAR VOLUME 90 fl (80-97); MONOCYTES % (AUTO) 6.2 % (3-13); PLATELET COUNT 314 10^3/uL (150-450); RED BLOOD COUNT 3.87 10^6/uL (3.72-5.28); RED CELL DISTRIBUTION WIDTH 14.4 % (11.5-14.0); SEGMENTED NEUTROPHILS % (AUTO) 65.6 % (42-78); TOTAL CELLS COUNTED % (AUTO) 100 %; WHITE BLOOD COUNT 7.6 10^3/uL (4.0-10.5)
[2019-03-15 12:01] LABS: ALBUMIN 4.2 g/dL (3.5-5.0); ALKALINE PHOSPHATASE 67 U/L (38-126); ANION GAP 9 (5-19); ASPARTATE AMINO TRANSFERASE 29 U/L (14-36); BILIRUBIN,DIRECT 0.3 mg/dL (0.0-0.4); BILIRUBIN,TOTAL 0.6 mg/dL (0.2-1.3); BLOOD UREA NITROGEN 11 mg/dL (7-20); CALCIUM 9.3 mg/dL (8.4-10.2); CARBON DIOXIDE 25 mmol/L (22-30); CHLORIDE 104 mmol/L (98-107); GLUCOSE 110 mg/dL (75-110); POTASSIUM 4.9 mmol/L (3.6-5.0); TOTAL PROTEIN 7.6 g/dL (6.3-8.2)
--- NOTE | 2019-03-15 14:10 | RADIOLOGY REPORT (SQ) ---
EXAM DESCRIPTION: C SP 4 OR 5 VIEWS COMPLETED DATE/TIME: 03/15/2019 11:26 am REASON FOR STUDY: UNSP ROTATR-CUFF TEAR/RUPTR OF UNSP SHOULDER, NOT TRAUMA; RADICULOPATHY CER K21.0 GASTRO-ESOPHAGEAL REFLUX DISEASE WITH ESOPHAGITIS N18.9 CHRONIC KIDNEY DISEASE, UNSPECIFIED Z79.899 OTHER RETIREMENT (CURRENT) DRUG THERAPY COMPARISON: None. NUMBER OF VIEWS: Five views. TECHNIQUE: AP, lateral, obliques and odontoid radiographic images acquired of the cervical spine. LIMITATIONS: None. FINDINGS: MINERALIZATION: Normal. ALIGNMENT: There is mild anterolisthesis of C5 on C6. VERTEBRAE: Vertebral bodies of normal height. DISCS: Disc spaces are narrowed from C5-C7 with marginal osteophytes most prominent at C6-7. FORAMINA: No osteophytes or foraminal narrowing. LATERAL AND POSTERIOR ELEMENTS: Hypertrophic facet changes are present bilaterally. HARDWARE: None in the spine. SOFT TISSUES: No masses or calcifications. Lung apices clear. OTHER: No other significant finding. IMPRESSION: Anterolisthesis of C5 on C6. Degenerative disc disease. Facet arthropathy. TECHNICAL DOCUMENTATION: JOB ID: [id number] [employer]- All Rights Reserved Reading location - IP/workstation name: [email or web address]
--- NOTE | 2019-03-15 14:17 | RADIOLOGY REPORT (SQ) ---
EXAM DESCRIPTION: SHOULDER RIGHT 2 OR MORE VIEWS COMPLETED DATE/TIME: 03/15/2019 11:26 am REASON FOR STUDY: UNSP ROTATR-CUFF TEAR/RUPTR OF UNSP SHOULDER, NOT TRAUMA K21.0 GASTRO-ESOPHAGEAL REFLUX DISEASE WITH ESOPHAGITIS N18.9 CHRONIC KIDNEY DISEASE, UNSPECIFIED Z79.899 OTHER [facility] ( CURRENT) DRUG THERAPY COMPARISON: None. NUMBER OF VIEWS: Three views. TECHNIQUE: Internal rotation, external rotation, and Y view images acquired of the right shoulder. LIMITATIONS: None. FINDINGS: MINERALIZATION: Normal. BONES: No acute fracture. No worrisome bone lesions. JOINTS: No dislocation. VISUALIZED LUNGS AND RIBS: No pneumothorax. No rib fracture. SOFT TISSUES: No radiopaque foreign body. OTHER: No other significant finding. IMPRESSION: NEGATIVE STUDY OF THE RIGHT SHOULDER. NO RADIOGRAPHIC EVIDENCE OF ACUTE INJURY. TECHNICAL DOCUMENTATION: JOB ID: [id number] [employer]- All Rights Reserved Reading location - IP/workstation name: [email or web address]
== END ==
LOC: OD 10:51
PROVIDERS: ATTEND Family Medicine Geriatric Medicine
DX: M54.12 Radiculopathy, cervical region (principal); M75.101 Unspecified rotator cuff tear or rupture of right shoulder, not specified as traumatic; K21.9 Gastro-esophageal reflux disease without esophagitis; N18.3 Chronic kidney disease, stage 3 (moderate); Z79.899 Other long term (current) drug therapy
CPT/HCPCS: 36415; 72050; 80053; 85025

== ENCOUNTER 2019-07-11 08:09 | Observation (INO) | payer MEDICARE, MEDICAID ==
[2019-07-11 09:30] LABS: ABSOLUTE BASOPHILS # (AUTO) 0.1 10^3/uL (0.0-0.2); ABSOLUTE LYMPHOCYTES (AUTO) 0.9 10^3/uL (0.5-4.7); ABSOLUTE MONOCYTES (AUTO) 0.6 10^3/uL (0.1-1.4); ABSOLUTE NEUT (AUTO) 9.3 10^3/uL (1.7-8.2); BASOPHILS % (AUTO) 0.5 % (0-2); EOSINOPHILS % (AUTO) 0.3 % (0-6); HEMATOCRIT 36.3 % (36.0-47.0); HEMOGLOBIN 12.5 g/dL (12.0-15.5); LYMPHOCYTES % (AUTO) 8.4 % (13-45); MEAN CORPUSCULAR HGB CONC 34.4 g/dL (32.0-36.0); MEAN CORPUSCULAR VOLUME 90 fl (80-97); MONOCYTES % (AUTO) 5.9 % (3-13); PLATELET COUNT 316 10^3/uL (150-450); RED BLOOD COUNT 4.03 10^6/uL (3.72-5.28); RED CELL DISTRIBUTION WIDTH 13.5 % (11.5-14.0); SEGMENTED NEUTROPHILS % (AUTO) 84.9 % (42-78); TOTAL CELLS COUNTED % (AUTO) 100 %
[2019-07-11 09:38] LABS: ALBUMIN 3.9 g/dL (3.5-5.0); ALKALINE PHOSPHATASE 77 U/L (38-126); ANION GAP 6 (5-19); ASPARTATE AMINO TRANSFERASE 18 U/L (14-36); BILIRUBIN,TOTAL 0.4 mg/dL (0.2-1.3); BLOOD UREA NITROGEN 12 mg/dL (7-20); CALCIUM 8.8 mg/dL (8.4-10.2); CARBON DIOXIDE 28 mmol/L (22-30); CHLORIDE 104 mmol/L (98-107); CREATINE KINASE 73 U/L (30-135); GLUCOSE 108 mg/dL (75-110); POTASSIUM 4.2 mmol/L (3.6-5.0); TOTAL PROTEIN 6.8 g/dL (6.3-8.2)
[2019-07-11 09:50] LABS: TROPONIN I < 0.012 ng/mL
[2019-07-11 09:57] LABS: APPEARANCE,URINE CLEAR; BILIRUBIN,URINE NEGATIVE (NEGATIVE); COLOR,URINE YELLOW; GLUCOSE, URINE NEGATIVE (NEGATIVE); KETONES,URINE NEGATIVE (NEGATIVE); PROTEIN,URINE NEGATIVE (NEGATIVE); URINE SPECIFIC GRAVITY 1.011; UROBILINOGEN,URINE NEGATIVE mg/dL (<2.0)
--- NOTE | 2019-07-11 10:11 | RADIOLOGY REPORT (SQ) ---
EXAM DESCRIPTION: CHEST 2 VIEWS COMPLETED DATE/TIME: 07/11/2019 9:55 am REASON FOR STUDY: cough/fever COMPARISON: PA and lateral views of the chest from 03/15/2019. EXAM PARAMETERS: NUMBER OF VIEWS: Two views. TECHNIQUE: PA and lateral views of the chest were obtained.. RADIATION DOSE: NA LIMITATIONS: none FINDINGS: LUNGS AND PLEURA: Asymmetric parenchymal opacities in the right upper lobe. The right lat eral costophrenic sulcus is blunted. There is no pneumothorax MEDIASTINUM AND HILAR STRUCTURES: No mediastinal or hilar contour abnormality. HEART AND VASCULAR STRUCTURES: The cardiac silhouette and pulmonary vasculature are within normal lyles its. BONES: No acute findings. HARDWARE: Cholecystectomy clips. OTHER: No other finding. IMPRESSION: Asymmetric parenchymal opacities in the right upper lobe. Clinical correlation to exclu de a pneumonia and radiographic follow-up to resolution are recommended. TECHNICAL DOCUMENTATION: JOB ID: [id number] [employer]- All Rights Reserved Reading location - IP/workstation name: [email or web address]
[2019-07-11] MEDS ORDERED: AZITHROMYCIN 250 MG TABLET PO ONE (10:40)
[2019-07-11] MEDS ORDERED: CEFTRIAXONE 2 GM/D5W RTU 2 GM/50 ML RTUPB IV ONE (10:40)
--- NOTE | 2019-07-11 10:49 | ER Document Report ---
ED Cardiac - General Chief Complaint: Chest Pain Stated Complaint: CHEST PAIN Time Seen by Provider: 07/11/19 08:47 Primary Care Provider: FRED MANUEL MD [Primary Care Provider] - Follow up as needed Mode of Arrival: Ambulatory Information source: Patient TRAVEL OUTSIDE OF THE [place] IN LAST 30 DAYS: No - HPI Notes: Patient presents with some mild confusion weakness cough and fever. Patient has had a cough for several days and daughter states she has had pneumonia in the past several times. She also is prone to urinary tract infections per daughter. Patient does live alone. No vomiting. Some mild chest pressure. No problems with diarrhea or rashes. The shortness of breath is been mild to moderate. Is worse with exertion better with rest. No no radiation of the symptoms. It has been intermittent. - Related Data Allergies/Adverse Reactions: promethazine HCl [From Phenergan] Allergy (Severe, Verified 01/28/19 10:43) Psychosis nitrofurantoin macrocrystalline [From Macrodantin] Allergy (Mild, Verified 01/28/19 10:43) Hives Sulfa (Sulfonamide Antibiotics) Allergy (Mild, Verified 01/28/19 10:43) itching ciprofloxacin [From Cipro] Allergy (Unknown, Verified 01/28/19 10:43) hydromorphone HCl [From Dilaudid] Adverse Reaction (Mild, Verified 01/28/19 10:43) Nausea Past Medical History - General Information source: Patient - Social History Smoking Status: Never Smoker Frequency of alcohol use: None Drug Abuse: None Family History: Reviewed & Not Pertinent Patient has suicidal ideation: No Patient has homicidal ideation: No - Past Medical History Cardiac Medical History: Denies: Hx Atrial Fibrillation, Hx Congestive Heart Failure, Hx Heart Attack Pulmonary Medical History: Denies: Hx Asthma, Hx Respiratory Failure, Hx Sleep Apnea Neurological Medical History: Denies: Hx Migraine Endocrine Medical History: Denies: Hx Diabetes Mellitus Type 1, Hx Diabetes Mellitus Type 2 Renal/ Medical History: Denies: Hx Peritoneal Dialysis GI Medical History: Reports: Hx Gastroesophageal Reflux Disease Musculoskeletal Medical History: Reports Hx Arthritis Skin Medical History: Denies Hx MRSA Psychiatric Medical History: Reports: Hx Anxiety - severe, Hx Depression Denies: Hx Bipolar Disorder, Hx Dementia Infectious Medical History: Reports: Hx C-Diff Past Surgical History: Reports: Hx Cholecystectomy, Hx Hysterectomy, Hx Orthoped ic Surgery - old back injury - Immunizations Hx Diphtheria, Pertussis, Tetanus Vaccination: Yes Review of Systems - Review of Systems Constitutional: Chills, Fever, Malaise, Weakness, Recent illness Cardiovascular: Chest pain. denies: Palpitations Respiratory: Cough, Short of breath -: Yes All other systems reviewed and negative Physical Exam - Vital signs Vitals: Temp Pulse Resp BP Pulse Ox 100.5 F H 77 20 138/57 H 96 07/11/19 08:22 07/11/19 08:22 07/11/19 08:22 07/11/19 08:22 07/11/19 08:22 Interpretation: Hypoxic - 89ra - General General appearance: Appears well, Alert - HEENT Head: Normocephalic, Atraumatic Eyes: Normal Pupils: PERRL - Respiratory Respiratory status: No respiratory distress Chest status: Nontender Breath sounds: Decreased air movement Chest palpation: Normal - Cardiovascular Rhythm: Regular Heart sounds: Normal auscultation Murmur: No - Abdominal Inspection: Normal Distension: No distension Bowel sounds: Normal Tenderness: Nontender Organomegaly: No organomegaly - Back Back: Normal, Nontender - Extremities General upper extremity: Normal inspection, Nontender, Normal color, Normal ROM, Normal temperature General lower extremity: Normal inspection, Nontender, Normal color, Normal ROM, Normal temperature, Normal weight bearing. No: Francisco's sign - Neurological Neuro grossly intact: Yes Cognition: Normal Orientation: AAOx4 [place] Coma Scale Eye Opening: Spontaneous [place] Coma Scale Verbal: Oriented [place] Coma Scale Motor: Obeys Commands [place] Coma Scale Total: 15 Speech: Normal Motor strength normal: LUE, RUE, LLE, RLE Sensory: Normal - Psychological Associated symptoms: Normal affect, Normal mood - Skin Skin Temperature: Warm Skin Moisture: Dry Skin Color: Normal Course - Re-evaluation Re-evalutation: 07/11/19 10:47 Patient presents with cough congestion some mild hypoxia. She has an obvious right upper lobe pneumonia. Due to patient's age mild confusion and the relative hypoxia she will require admission for further care. - Vital Signs Vital signs: Temp Pulse Resp BP Pulse Ox 100.1 F 77 12 120/72 94 07/11/19 10:10 07/11/19 08:22 07/11/19 09:01 07/11/19 09:01 07/11/19 09:13 - Laboratory Result Diagrams: 07/11/19 08:46 07/11/19 08:46 Laboratory results interpreted by me: 07/11/19 07/11/19 07/11/19 08:46 08:46 09:35 WBC 11.0 H Lymph % (Auto) 8.4 L Absolute Neuts (auto) 9.3 H Seg Neutrophils % 84.9 H Est GFR (MDRD) Non-Af 57 L Lactic Acid 0.6 L Urine Blood Urine Nitrite (Reflex) Leukocyte Esterase Rfl 07/11/19 09:43 WBC Lymph % (Auto) Absolute Neuts (auto) Seg Neutrophils % Est GFR (MDRD) Non-Af Lactic Acid Urine Blood SMALL H Urine Nitrite (Reflex) POSITIVE H Leukocyte Esterase Rfl TRACE H - Diagnostic Test Radiology reviewed: Image reviewed, Reports reviewed - EKG Interpretation by Me EKG shows normal: Sinus rhythm Rate: Normal Rhythm: NSR - 72 [place]/QRS: No: Right axis deviation, Left axis deviation Discharge - Discharge Clinical Impression: Hypoxemia Pneumonia Qualifiers: Pneumonia type: due to unspecified organism Laterality: right Lung location: upper lobe of lung Qualified Code(s): J18.9 - Pneumonia, unspecified organism Condition: Stable Disposition: ADMITTED INPATIENT Admitting Provider: Kandace (Hospitalist) Unit Admitted: Medical Floor Referrals: FRED MANUEL MD [Primary Care Provider] - Follow up as needed
[2019-07-11] MEDS ORDERED: ONDANSETRON 4 MG TAB.RAPDIS PO PRN (11:40)
[2019-07-11] MEDS ORDERED: IPRATROPIUM/ALBUTEROL 0.5-2.5 MG/3 ML AMPUL NEB PRN (11:40)
[2019-07-11] MEDS ORDERED: ZOLPIDEM TARTRATE 5 MG TABLET PO PRN (11:40)
[2019-07-11] MEDS ORDERED: ACETAMINOPHEN 325 MG TABLET PO PRN (11:40)
--- NOTE | 2019-07-11 13:28 | EKG REPORT ---
SEVERITY:- NORMAL ECG - SINUS RHYTHM : Confirmed by: Rolf Russell MD 11-Jul-2019 13:27:34
--- NOTE | 2019-07-11 16:38 | PDOC H&P ---
History of Present Illness Admission Date/PCP: 07/11/19 11:58 FRED MANUEL MD Patient complains of: Chest pain with difficulty breathing. Cough and generalized malaise for 2 days History of Present Illness: JOSEPH KIDD is a 73 year old female Who presents emergency room with complaints of difficulty breathing. She also has a nonproductive cough. She called her daughter to bring her to the emergency room due to these complaints. In the emergency room she was found to have a community-acquired pneumonia. She did have a mild fever on presentation. She reports feeling better at the time of my exam. Patient is been admitted for further evaluation and management Past Medical History Cardiac Medical History: Denies: Atrial Fibrillation, Congestive Heart Failure, Myocardial Infarction Pulmonary Medical History: Denies: Asthma, Respiratory Failure, Sleep Apnea Neurological Medical History: Denies: Migraine Endocrine Medical History: Denies: Diabetes Mellitus Type 1, Diabetes Mellitus Type 2 GI Medical History: Reports: Gastroesophageal Reflux Disease Musculoskeltal Medical History: Reports: Arthritis Psychiatric Medical History: Reports: Depression Denies: Bipolar Disorder, Dementia Hematology: Denies: Anemia, Hemophilia, Bleeding Tendencies Infectious Medical History: Reports: Clostridium Difficile Past Surgical History Past Surgical History: Reports: Cholecystectomy, Hysterectomy, Orthopedic Surgery - old back injury Social History Information Source: Patient Smoking Status: Former Smoker Frequency of Alcohol Use: None Hx Recreational Drug Use: No Drugs: None Hx Prescription Drug Abuse: No - Advance Directive Resuscitation Status: Full Code Family History Family History: Reviewed & Not Pertinent Parental Family History Reviewed: No Children Family History Reviewed: Yes Sibling(s) Family History Reviewed.: Yes Medication/Allergy Home Medications: Dicyclomine HCl [Bentyl 10 mg Capsule] 10 mg PO QIDP PRN 05/18/18 Oxycodone HCl 15 mg PO QIDP PRN 05/18/18 Diclofenac Sodium [Voltaren] 2 gm TP TIDP PRN 01/28/19 Gabapentin 800 mg PO QID 01/28/19 Pantoprazole Sodium 40 mg PO Q12 01/28/19 Acetaminophen [Pain Relief Extra Strength] 1,000 mg PO QIDP PRN 07/11/19 Allergies/Adverse Reactions: promethazine HCl [From Phenergan] Allergy (Severe, Verified 01/28/19 10:43) Psychosis nitrofurantoin macrocrystalline [From Macrodantin] Allergy (Mild, Verified 01/28/19 10:43) Hives Sulfa (Sulfonamide Antibiotics) Allergy (Mild, Verified 01/28/19 10:43) itching ciprofloxacin [From Cipro] Allergy (Unknown, Verified 01/28/19 10:43) hydromorphone HCl [From Dilaudid] Adverse Reaction (Mild, Verified 01/28/19 10:43) Nausea Review of Systems Constitutional: ABSENT: chills, fever(s), headache(s), weight gain, weight loss Eyes: ABSENT: visual disturbances Ears: ABSENT: hearing changes Cardiovascular: ABSENT: chest pain, dyspnea on exertion, edema, orthropnea, palpitations Respiratory: PRESENT: cough, dyspnea. ABSENT: hemoptysis Gastrointestinal: ABSENT: abdominal pain, constipation, diarrhea, hematemesis, hematochezia, nausea, vomiting Genitourinary: ABSENT: dysuria, hematuria Musculoskeletal: ABSENT: joint swelling Integumentary: ABSENT: rash, wounds Neurological: ABSENT: abnormal gait, abnormal speech, confusion, dizziness, focal weakness, syncope Psychiatric: ABSENT: anxiety, depression, homidical ideation, suicidal ideation Endocrine: ABSENT: cold intolerance, heat intolerance, polydipsia, polyuria Hematologic/Lymphatic: ABSENT: easy bleeding, easy bruising Physical Exam Vital Signs: Temp Pulse Resp BP Pulse Ox 98.5 F 75 12 100/62 94 07/11/19 13:24 07/11/19 13:24 07/11/19 13:24 07/11/19 13:24 07/11/19 13:24 Intake & Output 07/10/19 07/11/19 07/12/19 06:59 06:59 06:59 Intake Total 50 Balance 50 Weight 83 kg General appearance: PRESENT: no acute distress, well-developed, well-nourished, other - Relatively healthy looking Head exam: PRESENT: normocephalic Eye exam: PRESENT: conjunctiva pink, PERRLA. ABSENT: scleral icterus Mouth exam: PRESENT: tongue midline Neck exam: ABSENT: carotid bruit, JVD, lymphadenopathy, thyromegaly Respiratory exam: PRESENT: decreased breath sounds, rhonchi - Few scattered basal, unlabored. ABSENT: rales, wheezes Cardiovascular exam: PRESENT: RRR, +S1, +S2. ABSENT: diastolic murmur, rubs, systolic murmur Pulses: PRESENT: normal dorsalis pedis pul Vascular exam: PRESENT: normal capillary refill GI/Abdominal exam: PRESENT: normal bowel sounds, soft. ABSENT: distended, guarding, mass, organolmegaly, rebound, tenderness Rectal exam: PRESENT: deferred Extremities exam: PRESENT: full ROM. ABSENT: calf tenderness, clubbing, pedal edema Neurological exam: PRESENT: alert, awake, oriented to person, oriented to place, oriented to time, oriented to situation, CN II-XII grossly intact. ABSENT: motor sensory deficit Psychiatric exam: PRESENT: appropriate affect, normal mood. ABSENT: homicidal ideation, suicidal ideation Skin exam: PRESENT: dry, intact, warm. ABSENT: cyanosis, rash Results Laboratory Results: 07/11/19 08:46 07/11/19 08:46 07/11/19 07/11/19 07/11/19 08:46 08:46 09:35 WBC 11.0 H RBC 4.03 Hgb 12.5 Hct 36.3 MCV 90 MCH 31.0 MCHC 34.4 RDW 13.5 Plt Count 316 Seg Neutrophils % 84.9 H Sodium 138.4 Potassium 4.2 Chloride 104 Carbon Dioxide 28 Anion Gap 6 BUN 12 Creatinine 0.96 Est GFR ( Amer) > 60 Glucose 108 Lactic Acid 0.6 L Calcium 8.8 Total Bilirubin 0.4 AST 18 Alkaline Phosphatase 77 Total Protein 6.8 Albumin 3.9 Urine Color Urine Appearance Urine pH Ur Specific [place] Urine Protein Urine Glucose (UA) Urine Ketones Urine Blood Urine RBC (Auto) 07/11/19 09:43 WBC RBC Hgb Hct MCV MCH MCHC RDW Plt Count Seg Neutrophils % Sodium Potassium Chloride Carbon Dioxide Anion Gap BUN Creatinine Est GFR ( Amer) Glucose Lactic Acid Calcium Total Bilirubin AST Alkaline Phosphatase Total Protein Albumin Urine Color YELLOW Urine Appearance CLEAR Urine pH 5.0 Ur Specific [place] 1.011 Urine Protein NEGATIVE Urine Glucose (UA) NEGATIVE Urine Ketones NEGATIVE Urine Blood SMALL H Urine RBC (Auto) 1 07/11/19 07/11/19 08:46 08:46 Creatine Kinase 73 CK-MB (CK-2) 0.40 Troponin I < 0.012 Impressions: Chest X-Ray 07/11/19 09:30 IMPRESSION: Asymmetric parenchymal opacities in the right upper lobe. Clinical correlation to exclude a pneumonia and radiographic follow-up to resolution are recommended. Assessment and Plan - Diagnosis (1) Pneumonia Qualifiers: Pneumonia type: due to unspecified organism Laterality: right Lung location: upper lobe of lung Qualified Code(s): J18.9 - Pneumonia, unspecified organism Is this a current diagnosis for this admission?: Yes Plan: Chest x-ray shows a symmetric parenchymal opacities in the right upper lobe. Clinical correlation to exclude pneumonia and radiographic follow-up to resolution recommended Patient will be started on ceftriaxone as well as Zithromax for community- acquired pneumonia. Will provide with oxygen as warranted (2) Chronic pain syndrome Is this a current diagnosis for this admission?: Yes Plan: Patient apparently suffers from back pain. She is on oxycodone as well as gabapentin which will be continued (3) Chronic, continuous use of opioids Is this a current diagnosis for this admission?: Yes Plan: We will continue home oxycodone - Time Time Spent with patient: 25-34 minutes Medications reviewed and adjusted accordingly: Yes Anticipated discharge: Home Within: within 24 hours - Inpatient Certification Based on my medical assessment, after consideration of the patient's comorbidities, presenting symptoms, or acuity I expect that the services needed warrant INPATIENT care.: Yes Medical Necessity: Need Close Monitoring Due to Risk of Patient Decompensation
[2019-07-11] MEDS ORDERED: OXYCODONE HCL IR 5 MG TABLET PO PRN (16:41)
[2019-07-11] MEDS: GABAPENTIN 400 MG CAPSULE PO SCH ×2 (17:05→23:00)
[2019-07-11] MEDS: OXYCODONE-ACETAMINOPHEN 5-325 MG TABLET PO PRN (17:09)
[2019-07-11] MEDS ORDERED: (PENDING PHARMACY ID) (Gabapentin [Gabapentin] 800 MG) PO SCH (18:00)
[2019-07-11] MEDS: PANTOPRAZOLE SODIUM 40 MG TABLET.DR PO SCH (22:57)
[2019-07-12] MEDS: OXYCODONE-ACETAMINOPHEN 5-325 MG TABLET PO PRN (02:41)
[2019-07-12 05:43] LABS: ABSOLUTE BASOPHILS # (AUTO) 0.1 10^3/uL (0.0-0.2); ABSOLUTE EOSINOPHILS # (AUTO) 0.1 10^3/uL (0.0-0.6); ABSOLUTE LYMPHOCYTES (AUTO) 1.6 10^3/uL (0.5-4.7); ABSOLUTE MONOCYTES (AUTO) 0.7 10^3/uL (0.1-1.4); ABSOLUTE NEUT (AUTO) 6.4 10^3/uL (1.7-8.2); BASOPHILS % (AUTO) 0.8 % (0-2); EOSINOPHILS % (AUTO) 0.8 % (0-6); HEMATOCRIT 35.9 % (36.0-47.0); HEMOGLOBIN 11.8 g/dL (12.0-15.5); LYMPHOCYTES % (AUTO) 17.9 % (13-45); MEAN CORPUSCULAR HEMOGLOBIN 29.8 pg (27.0-33.4); MEAN CORPUSCULAR VOLUME 90 fl (80-97); MONOCYTES % (AUTO) 7.5 % (3-13); PLATELET COUNT 289 10^3/uL (150-450); RED BLOOD COUNT 3.97 10^6/uL (3.72-5.28); RED CELL DISTRIBUTION WIDTH 13.7 % (11.5-14.0); TOTAL CELLS COUNTED % (AUTO) 100 %; WHITE BLOOD COUNT 8.7 10^3/uL (4.0-10.5)
[2019-07-12] MEDS: GABAPENTIN 400 MG CAPSULE PO SCH ×2 (05:56→12:36)
[2019-07-12] MEDS: PANTOPRAZOLE SODIUM 40 MG TABLET.DR PO SCH (09:28)
[2019-07-12] MEDS ORDERED: ENOXAPARIN SODIUM INJ 40 MG/0.4 ML DISP.SYRIN SUBCUT SCH (10:00)
[2019-07-12] MEDS ORDERED: AZITHROMYCIN 250 MG TABLET PO SCH (10:00)
[2019-07-12] MEDS ORDERED: DOCUSATE SODIUM 100 MG CAPSULE PO SCH (10:00)
[2019-07-12] MEDS ORDERED: CEFTRIAXONE 1 GM/D5W RTU 1 GM/50 ML RTUPB IV SCH (10:00)
--- NOTE | 2019-07-12 13:26 | PDOC DISCHARGE SUMMARY ---
Impression - Admit/DC Date/PCP Admission Date/Primary Care Provider: 07/11/19 11:58 FRED MANUEL MD Discharge Date: 07/12/19 - Discharge Diagnosis (1) Pneumonia Is this a current diagnosis for this admission?: Yes (2) Chronic pain syndrome Is this a current diagnosis for this admission?: Yes (3) Chronic, continuous use of opioids Is this a current diagnosis for this admission?: Yes (4) Urinary tract infection Is this a current diagnosis for this admission?: Yes - Additional Information Resuscitation Status: Full Code Discharge Diet: Cardiac Discharge Activity: Activity As Tolerated Referrals: FRED MANUEL MD [Primary Care Provider] - 07/23/19 2:15 pm Prescriptions: Cefuroxime Axetil [Ceftin 500 mg Tablet] 1 tab PO BID #10 tablet Home Medications: Dicyclomine HCl [Bentyl 10 mg Capsule] 10 mg PO QIDP PRN 05/18/18 Oxycodone HCl 15 mg PO QIDP PRN 05/18/18 Diclofenac Sodium [Voltaren] 2 gm TP TIDP PRN 01/28/19 Gabapentin 800 mg PO QID 01/28/19 Pantoprazole Sodium 40 mg PO Q12 01/28/19 Acetaminophen [Pain Relief Extra Strength] 1,000 mg PO QIDP PRN 07/11/19 Cefuroxime Axetil [Ceftin 500 mg Tablet] 1 tab PO BID #10 tablet 07/12/19 History of Present Illiness History of Present Illness: JOSEPH KIDD is a 73 year old female Who presents emergency room with complaints of difficulty breathing. She also has a nonproductive cough. She called her daughter to bring her to the emergency room due to these complaints. In the emergency room she was found to have a community-acquired pneumonia. She did have a mild fever on presentation. She reports feeling better at the time of my exam. Patient is been admitted for further evaluation and management Hospital Course Hospital Course: Patient was admitted for community-acquired pneumonia. She remained stable throughout her short hospital stay. She remained afebrile and respiratory status was pretty stable. She was treated with intravenous ceftriaxone and Zithromax. As she is hemodynamically stable it is for the patient can be discharged home for outpatient follow-up and management and so she has been sent home on oral antibiotics Patient was noted to have a urinary tract infection secondary to gram-negative rods. Full cultures are currently not available however patient has been on ceftriaxone and so will be transition to oral Ceftin as described above. She will be contacted if any needs to adjust antibiotics depending on culture res ults Physical Exam Vital Signs: Temp Pulse Resp BP Pulse Ox 98.1 F 64 16 120/84 94 07/12/19 11:25 07/12/19 11:25 07/12/19 09:00 07/12/19 11:25 07/12/19 11:25 Intake & Output 07/11/19 07/12/19 07/13/19 06:59 06:59 06:59 Intake Total 290 50 Balance 290 50 Weight 79.4 kg General appearance: PRESENT: no acute distress, cooperative Head exam: PRESENT: atraumatic Neck exam: PRESENT: full ROM. ABSENT: JVD Respiratory exam: PRESENT: clear to auscultation ravindra, rhonchi GI/Abdominal exam: PRESENT: soft. ABSENT: tenderness Rectal exam: PRESENT: deferred Musculoskeletal exam: PRESENT: ambulatory Neurological exam: PRESENT: alert, awake, oriented to person, oriented to place, oriented to time, oriented to situation Results Laboratory Results: WBC 8.7 10^3/uL (4.0-10.5) 07/12/19 04:29 RBC 3.97 10^6/uL (3.72-5.28) 07/12/19 04:29 Hgb 11.8 g/dL (12.0-15.5) L 07/12/19 04:29 Hct 35.9 % (36.0-47.0) L 07/12/19 04:29 MCV 90 fl (80-97) 07/12/19 04:29 MCH 29.8 pg (27.0-33.4) 07/12/19 04:29 MCHC 33.0 g/dL (32.0-36.0) 07/12/19 04:29 RDW 13.7 % (11.5-14.0) 07/12/19 04:29 Plt Count 289 10^3/uL (150-450) 07/12/19 04:29 Lymph % (Auto) 17.9 % (13-45) 07/12/19 04:29 [place] % (Auto) 7.5 % (3-13) 07/12/19 04:29 Eos % (Auto) 0.8 % (0-6) 07/12/19 04:29 Baso % (Auto) 0.8 % (0-2) 07/12/19 04:29 Absolute Neuts (auto) 6.4 10^3/uL (1.7-8.2) 07/12/19 04:29 Absolute Lymphs (auto) 1.6 10^3/uL (0.5-4.7) 07/12/19 04:29 Absolute Monos (auto) 0.7 10^3/uL (0.1-1.4) 07/12/19 04:29 Absolute Eos (auto) 0.1 10^3/uL (0.0-0.6) 07/12/19 04:29 Absolute Basos (auto) 0.1 10^3/uL (0.0-0.2) 07/12/19 04:29 Seg Neutrophils % 73.0 % (42-78) 07/12/19 04:29 Sodium 138.4 mmol/L (137-145) 07/11/19 08:46 Potassium 4.2 mmol/L (3.6-5.0) 07/11/19 08:46 Chloride 104 mmol/L (98-107) 07/11/19 08:46 Carbon Dioxide 28 mmol/L (22-30) 07/11/19 08:46 Anion Gap 6 (5-19) 07/11/19 08:46 BUN 12 mg/dL (7-20) 07/11/19 08:46 Creatinine 0.96 mg/dL (0.52-1.25) 07/11/19 08:46 Est GFR ( Amer) > 60 (>60) 07/11/19 08:46 Est GFR (MDRD) Non-Af 57 (>60) L 07/11/19 08:46 Glucose 108 mg/dL (75-110) 07/11/19 08:46 POC Glucose 115 mg/dL (70-110) H 07/11/19 21:35 Lactic Acid 0.6 mmol/L (0.7-2.1) L 07/11/19 09:35 Calcium 8.8 mg/dL (8.4-10.2) 07/11/19 08:46 Total Bilirubin 0.4 mg/dL (0.2-1.3) 07/11/19 08:46 Direct Bilirubin 0.0 mg/dL (0.0-0.4) 07/11/19 08:46 Neonat Total Bilirubin Not Reportable 07/11/19 08:46 Neonat Direct Bilirubin Not Reportable 07/11/19 08:46 Neonat Indirect Bili Not Reportable 07/11/19 08:46 AST 18 U/L (14-36) 07/11/19 08:46 ALT 7 U/L (<35) 07/11/19 08:46 Alkaline Phosphatase 77 U/L (38-126) 07/11/19 08:46 Creatine Kinase 73 U/L (30-135) 07/11/19 08:46 CK-MB (CK-2) 0.40 ng/mL (<4.55) 07/11/19 08:46 Troponin I < 0.012 ng/mL 07/11/19 08:46 Total Protein 6.8 g/dL (6.3-8.2) 07/11/19 08:46 Albumin 3.9 g/dL (3.5-5.0) 07/11/19 08:46 Urine Color YELLOW 07/11/19 09:43 Urine Appearance CLEAR 07/11/19 09:43 Urine pH 5.0 (5.0-9.0) 07/11/19 09:43 Ur Specific [place] 1.011 07/11/19 09:43 Urine Protein NEGATIVE mg/dL (NEGATIVE) 07/11/19 09:43 Urine Glucose (UA) NEGATIVE mg/dL (NEGATIVE) 07/11/19 09:43 Urine Ketones NEGATIVE mg/dL (NEGATIVE) 07/11/19 09:43 Urine Blood SMALL (NEGATIVE) H 07/11/19 09:43 Urine Nitrite (Reflex) POSITIVE (NEGATIVE) H 07/11/19 09:43 Urine Bilirubin NEGATIVE (NEGATIVE) 07/11/19 09:43 Urine Urobilinogen NEGATIVE mg/dL (<2.0) 07/11/19 09:43 Leukocyte Esterase Rfl TRACE (NEGATIVE) H 07/11/19 09:43 Urine RBC (Auto) 1 /HPF 07/11/19 09:43 Urine Bacteria (Auto) 3+ /HPF 07/11/19 09:43 Urine WBC (Reflex) 11 /HPF 07/11/19 09:43 Squamous Epi Cells Auto <1 /HPF 07/11/19 09:43 Urine Mucus (Auto) RARE /LPF 07/11/19 09:43 Urine Ascorbic Acid NEGATIVE (NEGATIVE) 07/11/19 09:43 07/11/19 08:46 CK-MB (CK-2) 0.40 Troponin I < 0.012 Impressions: Chest X-Ray 07/11/19 09:30 IMPRESSION: Asymmetric parenchymal opacities in the right upper lobe. Clinical correlation to exclude a pneumonia and radiographic follow-up to resolution are recommended. Plan Health Concerns: Chest x-ray shows opacities in the right upper lobe. Suggestion to follow-up to resolution with outpatient imaging studies Time Spent: Less than 30 Minutes Stroke Is this a Stroke Patient?: No Acute Heart Failure - Is this a Heart Failure Patient?: No
[2019-07-12 13:42] VITALS: BP 120/64
== END 2019-07-12 15:14 | disposition home or self-care (01) ==
LOC: ER 08:09 → EH 11:58 → INTOOBSV 11:58 → 4N 13:24
PROVIDERS: ADMIT Internal Medicine; ATTEND Internal Medicine
DX: J18.9 Pneumonia, unspecified organism (principal); G89.4 Chronic pain syndrome; N39.0 Urinary tract infection, site not specified; M54.9 Dorsalgia, unspecified; K21.9 Gastro-esophageal reflux disease without esophagitis; M19.90 Unspecified osteoarthritis, unspecified site; R09.02 Hypoxemia; Z79.891 Long term (current) use of opiate analgesic; Z79.899 Other long term (current) drug therapy; Z87.891 Personal history of nicotine dependence; Z60.2 Problems related to living alone
CPT/HCPCS: 93005; 99285; 96365; 36415 ×2; 87040; 87086; 82553; 82962; 82550; 83605; 85025 ×2; 87088; 80053; 81001; 84484; 87186; 71046; 93010; A9270 ×10; J1650; J0696 ×2; J3490

== ENCOUNTER → 2019-09-04 | Outpatient (CLI) | payer MEDICARE, MEDICAID ==
--- NOTE | 2019-09-04 09:58 | RADIOLOGY REPORT (SQ) ---
EXAM DESCRIPTION: CHEST PA/LATERAL IMAGES COMPLETED DATE/TIME: 09/04/2019 9:37 am REASON FOR STUDY: PNEUMONIA, UNSPECIFIED ORGANISM COMPARISON: 07/11/2019 EXAM PARAMETERS: NUMBER OF VIEWS: two views TECHNIQUE: Digital Frontal and Lateral radiographic views of the chest acquired. RADIATION DOSE: NA LIMITATIONS: none FINDINGS: LUNGS AND PLEURA: No opacities, masses or pneumothorax. No pleural effusion. MEDIASTINUM AND HILAR STRUCTURES: Stable in appearance. Fullness along the right mediastinal border is consistent with slight patient rotation. HEART AND VASCULAR STRUCTURES: Heart normal size. No evidence for failure. BONES: No acute findings. HARDWARE: None in the chest. OTHER: No other significant finding. IMPRESSION: No acute findings in the chest. Right upper lobe airspace disease has resolved. TECHNICAL DOCUMENTATION: JOB ID: [id number] 2010 [employer]- All Rights Reserved Reading location - IP/workstation name: [email or web address]
== END ==
LOC: OD 09:19
PROVIDERS: ATTEND Family Medicine Geriatric Medicine
DX: J18.9 Pneumonia, unspecified organism (principal); N39.0 Urinary tract infection, site not specified; R31.9 Hematuria, unspecified
CPT/HCPCS: 71046; 87086